=== PATIENT | female | born 1965 | race Caucasian/White ===

== ENCOUNTER → 2020-07-23 08:00 | Outpatient (BNVA) | payer OTHER, SELFPAY | PROVIDERS: PCP Internal Medicine; Visit Provider Surgery | DX: Z76.89 Persons encountering health services in other specified circumstances (principal) ==

== ENCOUNTER 2020-08-19 17:31 | Outpatient (REF) | payer OTHER, SELFPAY ==
[2020-08-19 17:58] LABS: MANUAL DIFF FLAG NO
[2020-08-19 17:59] LABS: Basophils Absolute Auto 0.1 X10*3/uL (0.0-0.2); Eosinophils Absolute Auto 0.1 X10*3/uL (0.0-0.4); Eosinophils Percent Auto 1.8 % (0-4); Hematocrit 44.2 % (37-47); Hemoglobin 14.1 g/dl (12.0-16.0); Imm Gran Abs Auto 0.02 X10*3/uL (0.00-0.03); Imm Gran Pct Auto 0.4 % (0.0-0.4); Lymphocytes Absolute Auto 1.9 X10*3/uL (1.2-4.9); Mean Corpuscular HGB Conc 31.9 g/dl (31.0-35.0); Mean Corpuscular Hemoglobin 28.8 pg (27.0-33.0); Mean Corpuscular Volume 90.2 fL (80-98); Mean Platelet Volume 10.3 fL (9.4-12.3); Monocytes Absolute Auto 0.3 X10*3/uL (0.1-1.2); Monocytes Percent Auto 6.3 % (2-11); Neutrophils Absolute Auto 2.6 X10*3/uL (2.0-8.3); Neutrophils Percent Auto 52.5 % (45-73); Platelet Count 212 X10*3/uL (160-400); Red Cell Distribution Width 12.6 % (11.0-16.0); White Blood Count 4.9 X10*3/uL (4.8-10.8)
[2020-08-19 18:27] LABS: Alanine Aminotransferase 28 U/L (0-31); Albumin Level 4.3 g/dL (3.5-5.0); Alkaline Phosphatase 82 U/L (39-117); Anion Gap 11 (12-20); Aspartate Amino Transferase 25 U/L (5-31); Bilirubin Total 0.4 mg/dL (0.0-1.0); Blood Urea Nitrogen 8 mg/dL (9-16); C Reactive Protein 0.23 mg/dL (< or = 0.50); Calcium 8.9 mg/dL (8.4-10.2); Carbon Dioxide 27 mmol/L (22-29); Chloride 104 mmol/L (96-108); Estimated Glomerular Filt Rate > 60; Glucose Random 90 mg/dL (60-115); Sodium 138 mmol/L (135-145); Total Protein 7.2 g/dL (6.5-8.0)
== END 2020-08-19 17:32 | disposition home or self-care (01) ==
LOC: HO.LAB 17:31
PROVIDERS: PCP Internal Medicine; Visit Provider Surgery
DX: R10.12 Left upper quadrant pain (principal)
CPT/HCPCS: 36415; 80053; 85025; 86140

== ENCOUNTER → 2020-08-24 08:01 | Outpatient (BNVA) | payer OTHER, SELFPAY | PROVIDERS: PCP Internal Medicine; Referring Provider Internal Medicine; Visit Provider Surgery | DX: E66.9 Obesity, unspecified (principal); Z68.31 Body mass index [BMI] 31.0-31.9, adult; R10.12 Left upper quadrant pain; Z98.84 Bariatric surgery status | CPT/HCPCS: 99212 ==

== ENCOUNTER 2020-08-26 08:05 | Outpatient (REF) | payer OTHER, SELFPAY | END 2020-08-26 08:06 | disposition home or self-care (01) | LOC: HO.CT 08:05 | PROVIDERS: PCP Internal Medicine; Visit Provider Surgery | DX: Z13.89 Encounter for screening for other disorder (principal) ==

== ENCOUNTER 2020-08-31 12:11 | Outpatient (REF) | payer OTHER, SELFPAY ==
--- NOTE | 2020-08-31 12:14 | CT_ITS ---
EXAMINATION: CT ABDOMEN AND PELVIS WITH and without CONTRAST CLINICAL INFORMATION: Left upper quadrant pain COMPARISON: Previous abdominal ultrasound March [address] of the abdomen and pelvis June 2020 TECHNIQUE: Multidetector volumetric images were obtained from the superior aspect of the liver through the pubic symphysis with and without administration 100 mL of Omnipaque 350 intravenous contrast. Sagittal and coronal reformatted images were obtained on the technologist's workstation. Oral contrast: Yes This CT examination was performed using dose optimization techniques as appropriate, variously including the following: *Automated exposure control *Adjustment of mA and/or kV according to patient size (this includes techniques or standardized protocols for targeted exams where dose is matched to indication/reason for exam; i.e. extremities or head) *Use of iterative reconstruction technique DLP: 456 mGy-cm FINDINGS: LUNG BASES: The visualized lung bases are unremarkable. LIVER, GALLBLADDER, AND BILIARY TREE: The liver is normal in size, shape, and attenuation. No focal hepatic lesion or biliary ductal dilatation is present. The gallbladder is unremarkable with no evidence of radiopaque gallstones, gallbladder wall thickening, or obvious pericholecystic inflammatory changes. PANCREAS: Unremarkable. SPLEEN: Unremarkable. ADRENAL GLANDS: Unremarkable. KIDNEYS AND URETERS: There is a 2 x 4 mm stone in the upper pole of the right kidney. There is a small 1 mm stone in the lower pole of the right kidney. There is mild upper pole calyceal dilatation. No definite BLADDER: Unremarkable. GASTROINTESTINAL TRACT: There are postsurgical changes following gastric sleeve procedure. No fluid collection extravasated oral contrast or extraluminal air is seen. The small and large bowel are unremarkable. The appendix is identified. ABDOMINAL WALL: No significant hernia is appreciated. LYMPH NODES: Normal. VASCULAR: Unremarkable. PELVIC VISCERA: There is a 2 cm exophytic uterine fibroid adjacent left uterine fundus. There is question of a right posterior uterine body fibroid measuring 2 cm as well. The ovaries are unremarkable. OSSEOUS STRUCTURES: Unremarkable. CT/CT abdomen pelvis w con IMPRESSION: Stable postsurgical changes following gastric sleeve procedure. Right renal stones. Uterine fibroids.
--- NOTE | 2020-08-31 12:14 | CT_ITS ---
EXAMINATION: CT ANGIOGRAM OF THE CHEST WITH AND WITHOUT CONTRAST (CT PULMONARY ANGIOGRAM FOR PE) CLINICAL INFORMATION: Reason for Exam R10.12 - Left upper quadrant pain COMPARISON: None TECHNIQUE: Prior to contrast administration, noncontrast localization images were obtained. Subsequently, multidetector volumetric imaging was performed from the thoracic inlet to below the diaphragms following the administration of 100 mLOmnipaque 350 intravenous contrast. No contrast reaction reported Sagittal, coronal, and MIP oblique sagittal reformatted images were obtained on the CT workstation, uploaded to PACS, and reviewed. This CT examination was performed using dose optimization techniques as appropriate, variously including the following: *Automated exposure control *Adjustment of mA and/or kV according to patient size (this includes techniques or standardized protocols for targeted exams where dose is matched to indication/reason for exam; i.e. extremities or head) *Use of iterative reconstruction technique Total exam dose-length product 129 mGy-cm FINDINGS: QUALITY OF STUDY/CONTRAST BOLUS: Satisfactory. PULMONARY ARTERIES: No central or segmental pulmonary emboli. THORACIC AORTA: No aneurysm or dissection. LUNG: There is subsegmental atelectasis at the left lung base. The lungs are otherwise clear. PLEURA: No pleural effusion or pneumothorax. MEDIASTINUM: Normal heart size. No pericardial effusion. No hilar or mediastinal lymphadenopathy. No evidence of septal bowing or right heart strain. CHEST WALL/AXILLA: No axillary or internal mammary lymphadenopathy. OSSEOUS STRUCTURES: No acute or suspicious osseous abnormality. UPPER ABDOMEN: There are postsurgical changes to the stomach. No reflux of contrast into the hepatic veins to suggest elevated right heart pressures. CT/CT angio chest PE protocol IMPRESSION: No evidence of pulmonary embolism. VTE: negative
[2020-08-31] MEDS: iohexoL 350 MG/ML 100 ML INFUS..BTL IV (15:36)
[2020-08-31] MEDS: Barium Sulfate Oral (Mocha) 450 ML ORAL.SUSP 900 ML PO (15:37)
== END 2020-08-31 12:12 | disposition home or self-care (01) ==
LOC: HO.CT 12:11
PROVIDERS: Visit Provider Surgery
DX: R10.12 Left upper quadrant pain (principal); Z98.84 Bariatric surgery status
CPT/HCPCS: 71275; 74177; Q9967

== ENCOUNTER → 2020-10-05 08:21 | Outpatient (BNVA) | payer OTHER, SELFPAY | PROVIDERS: Visit Provider Surgery | DX: Z76.89 Persons encountering health services in other specified circumstances (principal) ==

== ENCOUNTER 2020-10-14 14:29 | Outpatient (REF) | payer OTHER, SELFPAY ==
[2020-10-14 16:32] LABS: MANUAL DIFF FLAG NO
[2020-10-14 16:39] LABS: Basophils Absolute Auto 0.1 X10*3/uL (0.0-0.2); Basophils Percent Auto 1.3 % (0-2); Eosinophils Absolute Auto 0.1 X10*3/uL (0.0-0.4); Eosinophils Percent Auto 1.3 % (0-4); Hematocrit 44.9 % (37-47); Hemoglobin 14.5 g/dl (12.0-16.0); Lymphocytes Absolute Auto 1.6 X10*3/uL (1.2-4.9); Lymphocytes Percent Auto 40.9 % (20-40); Mean Corpuscular HGB Conc 32.3 g/dl (31.0-35.0); Mean Corpuscular Hemoglobin 29.5 pg (27.0-33.0); Mean Corpuscular Volume 91.4 fL (80-98); Mean Platelet Volume 10.7 fL (9.4-12.3); Monocytes Absolute Auto 0.2 X10*3/uL (0.1-1.2); Monocytes Percent Auto 6.3 % (2-11); Neutrophils Absolute Auto 1.9 X10*3/uL (2.0-8.3); Neutrophils Percent Auto 50.2 % (45-73); Platelet Count 239 X10*3/uL (160-400); Red Blood Count 4.91 X10*6/uL (4.20-5.50); Red Cell Distribution Width 12.3 % (11.0-16.0); White Blood Count 3.8 X10*3/uL (4.8-10.8)
[2020-10-14 16:47] LABS: Estimated Average Glucose 105 mg/dL; Hemoglobin A1c % 5.3 %
[2020-10-14 16:59] LABS: Alanine Aminotransferase 25 U/L (0-31); Albumin Level 4.2 g/dL (3.5-5.0); Alkaline Phosphatase 83 U/L (39-117); Anion Gap 12 (12-20); Aspartate Amino Transferase 21 U/L (5-31); Bilirubin Total 0.4 mg/dL (0.0-1.0); Blood Urea Nitrogen 13 mg/dL (9-16); C Reactive Protein 0.26 mg/dL (< or = 0.50); Calcium 8.9 mg/dL (8.4-10.2); Carbon Dioxide 26 mmol/L (22-29); Chloride 105 mmol/L (96-108); Cholesterol 202 mg/dL; Estimated Glomerular Filt Rate > 60; Glucose Random 80 mg/dL (60-115); HDL Cholesterol 55 mg/dL; LDL Cholesterol Calculated 121 mg/dl; Potassium 4.2 mmol/l (3.3-5.1); Sodium 139 mmol/L (135-145); Total Protein 7.3 g/dL (6.5-8.0); Triglycerides 130 mg/dL
[2020-10-14 17:21] LABS: Ferritin 19 ng/mL (10-250); TSH reflex Free T4 1.26 mIU/mL (0.32-4.0); Vitamin D 25-OH Total 38.3 ng/mL (>30)
[2020-10-14 17:30] LABS: Vitamin B12 446 pg/mL (200-900)
[2020-10-15 11:42] LABS: Insulin Level Total 6.4 uIU/mL
[2020-10-15 19:08] LABS: Calcium (PTHI) 9.1 mg/dL (8.6-10.4); PTHI 41 pg/mL (14-64)
[2020-10-17 15:43] LABS: Zinc 82 mcg/dL (60-130)
[2020-10-18 12:23] LABS: Vitamin B1 10 nmol/L (8-30)
[2020-10-20 14:12] LABS: Vitamin A 44 mcg/dL (38-98)
== END 2020-10-14 14:30 | disposition home or self-care (01) ==
LOC: HO.LAB 14:29
PROVIDERS: PCP Internal Medicine; Visit Provider Surgery
DX: E66.3 Overweight (principal); K90.9 Intestinal malabsorption, unspecified
CPT/HCPCS: 36415; 80053; 80061; 82306; 82607; 82728; 82746; 83036; 83525; 83970; 84425; 84443; 84590; 84630; 85025; 86140

== ENCOUNTER → 2020-11-06 08:09 | Outpatient (BNVA) | payer OTHER, SELFPAY | PROVIDERS: PCP Internal Medicine; Visit Provider Surgery | DX: Z76.89 Persons encountering health services in other specified circumstances (principal) ==

== ENCOUNTER → 2020-12-11 08:25 | Outpatient (BNVA) | payer OTHER, SELFPAY | PROVIDERS: PCP Internal Medicine; Visit Provider Surgery ==

== ENCOUNTER → 2021-01-11 07:29 | Outpatient (BNVA) | payer OTHER, SELFPAY | PROVIDERS: PCP Internal Medicine; Visit Provider Surgery ==

== ENCOUNTER → 2021-02-19 08:49 | Outpatient (BNVA) | payer OTHER, SELFPAY | PROVIDERS: PCP Internal Medicine; Visit Provider Surgery ==

== ENCOUNTER 2021-04-02 11:04 | Outpatient (REF) | payer OTHER, SELFPAY ==
[2021-04-02 12:57] LABS: Alanine Aminotransferase 23 U/L (0-31); Alkaline Phosphatase 82 U/L (39-117); Anion Gap 10 (12-20); Aspartate Amino Transferase 21 U/L (5-31); Bilirubin Total 0.4 mg/dL (0.0-1.0); Blood Urea Nitrogen 12 mg/dL (9-16); Calcium 8.9 mg/dL (8.4-10.2); Carbon Dioxide 29 mmol/L (22-29); Chloride 105 mmol/L (96-108); Estimated Glomerular Filt Rate > 60; Glucose Random 84 mg/dL (60-115); Potassium 4.2 mmol/L (3.3-5.1); Sodium 140 mmol/L (135-145); Total Protein 6.7 g/dL (6.5-8.0)
[2021-04-02 13:13] LABS: Estimated Average Glucose 103 mg/dL; Hemoglobin A1c % 5.2 %
== END 2021-04-02 11:05 | disposition home or self-care (01) ==
LOC: HO.LAB 11:04
PROVIDERS: PCP Internal Medicine; Visit Provider Surgery
DX: K90.9 Intestinal malabsorption, unspecified (principal)
CPT/HCPCS: 36415; 80053; 83036

== ENCOUNTER → 2021-05-12 07:23 | Outpatient (BNVA) | payer OTHER, SELFPAY | PROVIDERS: PCP Internal Medicine; Visit Provider Surgery ==

== ENCOUNTER → 2021-12-03 14:59 | Outpatient (BNVA) | payer OTHER, SELFPAY | PROVIDERS: PCP Internal Medicine; Visit Provider Dietitian, Registered | DX: E66.9 Obesity, unspecified (principal) | CPT/HCPCS: 97803 ==

== ENCOUNTER 2021-12-06 15:19 | Outpatient (REF) | payer OTHER, SELFPAY ==
[2021-12-06 16:39] LABS: MANUAL DIFF FLAG NO
[2021-12-06 17:00] LABS: Basophils Absolute Auto 0.1 X10*3/uL (0.0-0.2); Basophils Percent Auto 0.9 % (0-2); Eosinophils Absolute Auto 0.1 X10*3/uL (0.0-0.4); Hematocrit 40.9 % (37.0-47.0); Hemoglobin 13.5 g/dl (12.0-16.0); Imm Gran Abs Auto 0.01 X10*3/uL (0.00-0.03); Imm Gran Pct Auto 0.2 % (0.0-0.4); Lymphocytes Absolute Auto 1.8 X10*3/uL (1.2-4.9); Lymphocytes Percent Auto 30.4 % (20-40); Mean Corpuscular Hemoglobin 29.6 pg (27.0-33.0); Mean Corpuscular Volume 89.7 fL (80.0-98.0); Mean Platelet Volume 9.9 fL (9.4-12.3); Monocytes Absolute Auto 0.4 X10*3/uL (0.1-1.2); Monocytes Percent Auto 7.5 % (2-11); Neutrophils Absolute Auto 3.5 x10*3/uL (2.0-8.3); Platelet Count 245 X10*3/uL (160-400); Red Blood Count 4.56 X10*6/uL (4.20-5.50); Red Cell Distribution Width 11.9 % (11.0-16.0); White Blood Count 5.9 X10*3/uL (4.8-10.8)
[2021-12-06 17:23] LABS: Anion Gap 11 (12-20); Blood Urea Nitrogen 17 mg/dL (9-16); C Reactive Protein 0.16 mg/dL (< or = 0.50); Calcium 9.7 mg/dL (8.4-10.2); Carbon Dioxide 29 mmol/L (22-29); Chloride 104 mmol/L (96-108); Cholesterol 181 mg/dL; Estimated Glomerular Filt Rate > 60; Glucose Random 87 mg/dL (60-115); HDL Cholesterol 52 mg/dL; Iron 83 mcg/dL (30-160); LDL Cholesterol Calculated 59 mg/dl; Percent Iron Saturation 22 % (15-50); Potassium 4.1 mmol/L (3.3-5.1); Sodium 140 mmol/L (135-145); Total Iron Binding Capacity 374 mcg/dL (228-428); Triglycerides 350 mg/dL; Unsaturated Iron Binding 291 ug/dL
[2021-12-06 17:50] LABS: TSH reflex Free T4 1.42 uIU/mL (0.32-4.0); Vitamin D 25-OH Total 28.8 ng/mL (>30)
[2021-12-06 17:54] LABS: Folate 8.2 ng/mL (> or = 4.0); Vitamin B12 643 pg/mL (200-900)
[2021-12-06 18:20] LABS: Ferritin 41 ng/mL (10-250)
[2021-12-07 08:54] LABS: Alanine Aminotransferase 21 U/L (0-31); Albumin Level 4.1 g/dL (3.5-5.0); Alkaline Phosphatase 67 U/L (39-117); Aspartate Amino Transferase 21 U/L (5-31); Bilirubin Direct < 0.2 mg/dL (0.0-0.5); Bilirubin Total 0.3 mg/dL (0.0-1.0); Lipase 112 U/L (8-78)
[2021-12-07 08:59] LABS: Amylase 110 U/L (28-100)
[2021-12-10 01:56] LABS: Zinc 58 mcg/dL (60-130)
[2021-12-10 11:47] LABS: Vitamin B1 15 nmol/L (8-30)
[2021-12-11 19:47] LABS: Vitamin A 59 mcg/dL (38-98)
== END 2021-12-06 15:20 | disposition home or self-care (01) ==
LOC: HO.LAB 15:19
PROVIDERS: PCP Internal Medicine; Visit Provider Physician Assistant Surgical
DX: K90.9 Intestinal malabsorption, unspecified (principal); E53.8 Deficiency of other specified B group vitamins; Z98.84 Bariatric surgery status; Z90.49 Acquired absence of other specified parts of digestive tract
CPT/HCPCS: 36415; 80048; 80061; 80076; 82150; 82306; 82607; 82728; 82746; 83540; 83690; 84425; 84443; 84590; 84630; 85025; 86140; 99212

== ENCOUNTER → 2021-12-20 08:08 | Outpatient (BNVA) | payer OTHER, SELFPAY | PROVIDERS: PCP Internal Medicine; Visit Provider Dietitian, Registered | DX: E66.3 Overweight (principal) | CPT/HCPCS: 97803 ==

== ENCOUNTER → 2021-12-21 10:28 | Outpatient (BNVA) | payer OTHER, SELFPAY | PROVIDERS: PCP Internal Medicine; Visit Provider Physician Assistant Surgical | DX: E66.9 Obesity, unspecified (principal); Z68.30 Body mass index [BMI] 30.0-30.9, adult; R10.12 Left upper quadrant pain; Z98.84 Bariatric surgery status; Z90.49 Acquired absence of other specified parts of digestive tract | CPT/HCPCS: 99212 ==

== ENCOUNTER → 2022-04-08 13:30 | Outpatient (BNVA) | payer OTHER, SELFPAY | PROVIDERS: PCP Internal Medicine; Visit Provider Physician Assistant Surgical | DX: E66.9 Obesity, unspecified (principal); Z68.31 Body mass index [BMI] 31.0-31.9, adult; Z98.84 Bariatric surgery status | CPT/HCPCS: 99212 ==

== ENCOUNTER 2022-08-26 09:55 | Outpatient (REF) | payer OTHER, SELFPAY ==
[2022-08-26 10:07] LABS: MANUAL DIFF FLAG NO
[2022-08-26 10:33] LABS: Basophils Absolute Auto 0.1 X10*3/uL (0.0-0.2); Basophils Percent Auto 1.6 % (0-2); Eosinophils Absolute Auto 0.1 X10*3/uL (0.0-0.4); Eosinophils Percent Auto 2.8 % (0-4); Hematocrit 42.2 % (37.0-47.0); Hemoglobin 13.8 g/dl (12.0-16.0); Lymphocytes Absolute Auto 1.5 X10*3/uL (1.2-4.9); Lymphocytes Percent Auto 39.1 % (20-40); Mean Corpuscular HGB Conc 32.7 g/dl (31.0-35.0); Mean Corpuscular Hemoglobin 29.1 pg (27.0-33.0); Mean Platelet Volume 9.8 fL (9.4-12.3); Monocytes Absolute Auto 0.3 X10*3/uL (0.1-1.2); Monocytes Percent Auto 6.7 % (2-11); Neutrophils Absolute Auto 1.9 x10*3/uL (2.0-8.3); Neutrophils Percent Auto 49.8 % (45-73); Platelet Count 244 X10*3/uL (160-400); Red Blood Count 4.74 X10*6/uL (4.20-5.50); Red Cell Distribution Width 12.1 % (11.0-16.0); White Blood Count 3.9 X10*3/uL (4.8-10.8)
[2022-08-26 10:46] LABS: Estimated Average Glucose 111 mg/dL; Hemoglobin A1c % 5.5 %
[2022-08-26 11:10] LABS: Alanine Aminotransferase 24 U/L (0-31); Albumin Level 4.1 g/dL (3.5-5.0); Alkaline Phosphatase 64 U/L (39-117); Anion Gap 14 (12-20); Aspartate Amino Transferase 25 U/L (5-31); Bilirubin Total 0.4 mg/dL (0.0-1.0); Blood Urea Nitrogen 9 mg/dL (9-16); C Reactive Protein 0.19 mg/dL (< or = 0.50); Calcium 9.3 mg/dL (8.4-10.2); Carbon Dioxide 26 mmol/L (22-29); Chloride 106 mmol/L (96-108); Cholesterol 208 mg/dL; Estimated Glomerular Filt Rate > 60; Glucose Random 88 mg/dL (60-115); HDL Cholesterol 52 mg/dL; Iron 91 mcg/dL (30-160); LDL Cholesterol Calculated 117 mg/dl; Percent Iron Saturation 24 % (15-50); Potassium 4.3 mmol/L (3.3-5.1); Sodium 142 mmol/L (135-145); Total Iron Binding Capacity 379 mcg/dL (228-428); Total Protein 7.1 g/dL (6.5-8.0); Triglycerides 196 mg/dL; Unsaturated Iron Binding 288 ug/dL
[2022-08-26 11:33] LABS: Ferritin 15 ng/mL (10-250); Insulin 14 uU/mL (2-29); TSH reflex Free T4 1.74 uIU/mL (0.32-4.0); Vitamin D 25-OH Total 27.3 ng/mL (>30)
[2022-08-26 11:59] LABS: Folate 13.5 ng/mL (> or = 4.0)
[2022-08-26 12:51] LABS: Vitamin B12 396 pg/mL (200-900)
[2022-08-29 12:42] LABS: Calcium (PTHI) 9.2 mg/dL (8.6-10.4); PTHI 76 pg/mL (16-77)
[2022-08-31 06:16] LABS: Zinc 82 mcg/dL (60-130)
[2022-08-31 23:17] LABS: Vitamin A 46 mcg/dL (38-98)
[2022-09-01 14:36] LABS: Vitamin B1 <6 nmol/L (8-30)
== END 2022-08-26 09:56 | disposition home or self-care (01) ==
LOC: HO.LAB 09:55
PROVIDERS: PCP Internal Medicine; Visit Provider Physician Assistant Surgical
DX: K90.9 Intestinal malabsorption, unspecified (principal); Z98.84 Bariatric surgery status
CPT/HCPCS: 36415; 80053; 80061; 82306; 82607; 82728; 82746; 83036; 83525; 83540; 83970; 84425; 84443; 84590; 84630; 85025; 86140

== ENCOUNTER → 2022-09-09 15:04 | Outpatient (BNVA) | payer OTHER, SELFPAY | PROVIDERS: PCP Internal Medicine; Visit Provider Physician Assistant Surgical | DX: E66.9 Obesity, unspecified (principal); Z98.84 Bariatric surgery status; Z68.31 Body mass index [BMI] 31.0-31.9, adult | CPT/HCPCS: 99212 ==

== ENCOUNTER → 2022-12-02 13:35 | Outpatient (BNVA) | payer OTHER, SELFPAY | PROVIDERS: PCP Internal Medicine; Visit Provider Physician Assistant Surgical | DX: E66.9 Obesity, unspecified (principal); K90.9 Intestinal malabsorption, unspecified; Z68.30 Body mass index [BMI] 30.0-30.9, adult; Z98.84 Bariatric surgery status | CPT/HCPCS: 99212 ==

== ENCOUNTER → 2023-02-13 14:04 | Outpatient (BNVA) | payer OTHER, SELFPAY | PROVIDERS: PCP Internal Medicine; Visit Provider Physician Assistant Surgical | DX: E66.9 Obesity, unspecified (principal); Z68.31 Body mass index [BMI] 31.0-31.9, adult | CPT/HCPCS: 99212 ==

== ENCOUNTER → 2023-02-21 14:21 | Outpatient (BNVA) | payer OTHER, SELFPAY | PROVIDERS: PCP Internal Medicine; Visit Provider Physician Assistant | DX: M54.40 Lumbago with sciatica, unspecified side (principal) | CPT/HCPCS: 99212 ==

== ENCOUNTER 2023-04-18 14:14 | Outpatient (REF) | payer OTHER, SELFPAY ==
--- NOTE | ~2023-04-18 | MR_ITS ---
EXAMINATION: MR LUMBAR SPINE WITHOUT AND WITH CONTRAST CLINICAL INFORMATION: Left sciatica COMPARISON: None available. TECHNIQUE: MRI of the lumbar spine was obtained using routine sequences with and without contrast. Intravenous contrast: Gadavist 9 mL FINDINGS: Normal anatomic alignment. No suspicious marrow signal or focal osseous lesion. Mild edema along the anterior superior L1 endplates. The vertebral body heights are maintained. Mild multilevel disc desiccation The conus medullaris terminates at the level of L1. The distal spinal cord is normal in appearance. The cauda equina nerve roots appear normal. No significant abnormalities of the paraspinal musculature. Mild enhancement of the midline paraspinal soft tissues at L4-L5, likely postoperative. Limited evaluation of the intra-abdominal structures without significant abnormalities. The abdominal aorta is of normal contour and caliber. SPINAL LEVELS: L1-L2: No significant spinal canal or neuroforaminal narrowing. Shallow disc bulge and mild facet arthropathy. L2-L3: Right eccentric disc bulge, mild facet arthropathy. No significant central spinal canal stenosis. Mild right neural foraminal narrowing L3-L4: Shallow left eccentric disc bulge and mild facet arthropathy. No significant central spinal canal stenosis. Mild left neural foraminal narrowing. L4-L5: Left hemilaminectomy changes. Shallow disc bulge with superimposed small left subarticular protrusion with mild peripheral enhancement of disc material likely reflecting postoperative granulation tissue which contacts the traversing left L5 nerve root. Mild facet arthropathy and ligamentum flavum thickening. No significant central spinal canal stenosis mild bilateral neural foraminal narrowing. L5-S1: No significant spinal canal or neuroforaminal narrowing. Shallow disc bulge and mild facet arthropathy MR/MR lumbar spine wo/w con IMPRESSION: 1. Postsurgical changes from left hemilaminectomy at L4-L5. There is a small left subarticular disc protrusion with peripheral enhancement of disc material likely reflecting postoperative granulation tissue which contacts the traversing left L5 nerve root. 2. Otherwise mild multilevel lumbar spondylosis as described above without significant central spinal canal stenosis or high-grade neural foraminal narrowing.
== END 2023-04-18 14:15 | disposition home or self-care (01) ==
LOC: HO.MRI 14:14
PROVIDERS: PCP Internal Medicine; Visit Provider Physician Assistant
DX: M54.40 Lumbago with sciatica, unspecified side (principal)
CPT/HCPCS: 72158; A9585

== ENCOUNTER 2023-05-09 14:50 | Outpatient (AMB) | payer OTHER, SELFPAY ==
[2023-05-09 14:52] VITALS: BP 139/64; PULSE 74; TEMP 36.6; O2SAT 97; BMI 31.7
--- NOTE | 2023-05-09 14:52 | A.OFFVIS_ITS ---
Intake VS Expanded 05/09/23 14:52 Height 5 ft 6 in Weight 196 lb 3.2 oz BMI 31.7 BP 139/64 Blood Pressure Location Rt brachial Blood Pressure Position Sitting Pulse 74 Pulse Source Pulse Oximeter Temp 97.8 F Temperature Source Temporal Artery Scan Pulse Oximetry 97 Oxygen Delivery Method Room Air Body Fat 81.0 Body Fat Percentage 41.3 Free Fat Mass 115.0 Muscle Mass 109.4 Visceral Mass 10.0 Water Mass 81.6 BMR 1,587 Intake Visit Reasons: (OV) PO LSG 06/11/20 Allergies aspirin [ASA] Allergy (Severe, Verified 05/09/23 14:55) ANAPHYLAXIS NSAIDS (Non-Steroidal Anti-Inflamma [NSAIDS (NON-STEROIDAL ANTI-INFLAMMA] Allergy (Severe, Verified 05/09/23 14:55) ANAPHYLAXIS shellfish derived [SHELLFISH DERIVED] Allergy (Severe, Verified 05/09/23 14:55) ANAPHYLAXIS fish oil Allergy (Unknown, Verified 05/09/23 14:55) sinus symptoms Aspirin Allergy (Unknown, Uncoded 12/06/21 15:26) vomiting Shellfish Allergy (Unknown, Uncoded 12/06/21 15:26) itching Medication List - Last Reconciled 05/09/23 by VIKTOR Cam atorvastatin 10 mg PO BEDTIME cetirizine 10 mg PO DAILY cholecalciferol (vitamin D3) 25 mcg PO DAILY cholestyramine (with sugar) 4 gram PO TID duloxetine (Cymbalta) 60 mg PO DAILY hyoscyamine sulfate 0.125 mg PO QIDACHS montelukast 10 mg PO DAILY thiamine HCl (vitamin B1) 100 mg PO DAILY HPI HPI Comments History of Present Illness Details This?is a?57?yo female who is s/p LSG 06/11/2020. Presents for 3 year post op visit. Weight at last visit on 02/13/2023 was 194.6 pounds with a BMI of 31.4, weight today is 196.2 pounds, representing a 1.6 pound weight gain with a BMI today of 31.7.? No complaints of nausea, emesis, abdominal pain or reflux, or constipation. Starting a new job soon at [employer]. Getting a more structured schedule and more consistent income. Present meal plan includes: 2 Celebrate shakes per day with 2 scoops each, plus a meal of 4oz or a meal of 2-3oz protein and a small snack. Has been less consistent with shakes. All meals last 20 - 30 minutes and does not drink and eat at the same time. Exercise routine includes: trying to continue spine exercises, still having some pain plans to restart gym once new job starts, wants to walk on treadmill Did the patient ever have any of these conditions and are they resolved or still being treated? GERD: resolved ROBERTO:? resolved DM:? never HTN:? never Hyperlipidemia:? atorvastatin? Post op complications:?none Heartburn symptoms? worsened during course of steroids Score 0-5: 0=no symptoms, 1=noticeable but not bothersome (slight or occasional), 2=noticeable, bothersome but not daily, 3=bothersome and daily, 4=affects daily activities, 5=incapacitating, unable to do daily activities How bad is the heartburn: 5 Heartburn when lying down: 4 Heartburn when standing up: 4 Heartburn after meals: 3 Does heartburn change your diet: 4 Does heartburn wake you up from sleep: 2 Do you have difficulty swallowin Do you have pain with swallowin If you take medication for reflux, does this affect your daily life: 4 Total score: 27 [facility] Medical History (Updated 02/21/23 @ 15:02 by VIKTOR Tuttle) Asthma Intestinal malabsorption Nephrolithiasis Surgical History H/O shoulder surgery H/O sinus surgery History of esophagogastroduodenoscopy (EGD) History of sleeve gastrectomy Hx of appendectomy Hx of section Hx of colonoscopy Hx of spinal surgery S/P laparoscopic sleeve gastrectomy S/P right knee arthroscopy Family History Father Hypertension Heart disease Colon cancer Mother Spinal stenosis Brother No problems noted. Brother No problems noted. Brother No problems noted. Sister No problems noted. Sister No problems noted. Son No problems noted. Daughter No problems noted. Daughter No problems noted. Daughter No problems noted. Social History Alcohol intake: never Patient Tobacco Use Status: Never used Tobacco Physical Exam Vital Signs: Last Vital Signs Temp 97.8 F 05/09/23 14:52 Pulse 74 05/09/23 14:52 BP 139/64 05/09/23 14:52 Pulse Ox 97 05/09/23 14:52 Oxygen Delivery Method Room Air 05/09/23 14:52 BMI result Body Mass Index 31.7 Assessment & Plan Assessment & Plan (1) Obesity: Code(s): E66.9 - Obesity, unspecified (2) S/P laparoscopic sleeve gastrectomy: Code(s): Z98.84 - Bariatric surgery status Plan New meal plan for pt's new job: 8-10am Celebrate shake, 2 scoops in 8oz skim or 1% milk 12pm small meal of 2oz protein, can have 2oz veg 2-4pm another shake 6pm another meal Pt encouraged to resume exercise now that her schedule is becoming more consistent, planning to join daughter and son at the gym. RTC August, will repeat labs at that time. Encouraged pt to reach out between appts with any concerns. Patient is obese and is not considered stable at this time. I spent a total of 30 minutes reviewing/updating records, examining the patient and counseling the patient on weight management as detailed above. Coding Level of Care Code Est Pt Level 4 (18679) Diagnoses Obesity E66.9 S/P laparoscopic sleeve gastrectomy Z98.84
== END 2023-05-09 15:37 | disposition home or self-care (01) ==
PROVIDERS: PCP Internal Medicine; Visit Provider Physician Assistant Surgical
DX: E66.9 Obesity, unspecified (principal); Z68.31 Body mass index [BMI] 31.0-31.9, adult; Z90.3 Acquired absence of stomach [part of]; Z98.84 Bariatric surgery status
CPT/HCPCS: 99214

== ENCOUNTER → 2023-05-09 14:50 | Outpatient (BNVA) | payer OTHER, SELFPAY | PROVIDERS: PCP Internal Medicine; Visit Provider Physician Assistant Surgical | DX: E66.9 Obesity, unspecified (principal); Z98.84 Bariatric surgery status; Z68.31 Body mass index [BMI] 31.0-31.9, adult | CPT/HCPCS: 99212 ==

== ENCOUNTER 2023-12-21 12:27 | Outpatient (AMB) | payer OTHER, SELFPAY ==
--- NOTE | 2023-12-21 12:39 | MHC.OFFVISWM ---
Intake VS Expanded 12/21/23 12:47 BP 147/72 H Blood Pressure Location Rt brachial Blood Pressure Position Sitting Pulse 72 Pulse Source Pulse Oximeter Temp 97.3 F Temperature Source Temporal Artery Scan Pulse Oximetry 96 Oxygen Delivery Method Room Air Height 5 ft 6 in Weight 196 lb 9.6 oz BMI 31.7 Body Fat % 42.5 Body Fat Mass 83.6 Fat Free Mass 112.8 Visceral Fat Rating 11.0 Body Water % 40.7 Body Water Mass 80.0 Muscle Mass/Score 107.2 Basal Metabolic Rate/Score 1,564 Intake Visit Reasons: (OV) PO LSG 06/11/20 Allergies aspirin [ASA] Allergy (Severe, Verified 12/21/23 12:53) ANAPHYLAXIS NSAIDS (Non-Steroidal Anti-Inflamma [NSAIDS (NON-STEROIDAL ANTI-INFLAMMA] Allergy (Severe, Verified 12/21/23 12:53) ANAPHYLAXIS shellfish derived [SHELLFISH DERIVED] Allergy (Severe, Verified 12/21/23 12:53) ANAPHYLAXIS fish oil Allergy (Unknown, Verified 12/21/23 12:53) sinus symptoms Aspirin Allergy (Unknown, Uncoded 12/21/23 12:53) vomiting Shellfish Allergy (Unknown, Uncoded 12/21/23 12:53) itching Medication List - Last Reconciled 12/21/23 by VIKTOR Cam cetirizine 10 mg PO DAILY cholecalciferol (vitamin D3) 25 mcg PO DAILY cholestyramine (with sugar) 4 gram PO TID montelukast 10 mg PO DAILY thiamine HCl (vitamin B1) 100 mg PO DAILY [facility] Medical History (Updated 02/21/23 @ 15:02 by VIKTOR Tuttle) Intestinal malabsorption Asthma Nephrolithiasis Surgical History Hx of spinal surgery S/P laparoscopic sleeve gastrectomy History of sleeve gastrectomy H/O sinus surgery S/P right knee arthroscopy H/O shoulder surgery Hx of appendectomy History of esophagogastroduodenoscopy (EGD) Hx of colonoscopy Hx of section Family History Father Hypertension Heart disease Colon cancer Mother Spinal stenosis Brother No problems noted. Brother No problems noted. Brother No problems noted. Sister No problems noted. Sister No problems noted. Son No problems noted. Daughter No problems noted. Daughter No problems noted. Daughter No problems noted. Social History Alcohol intake: never Patient Tobacco Use Status: Never used Tobacco Coding
--- NOTE | 2023-12-21 12:45 | A.OFFVIS_ITS ---
Intake VS Expanded 12/21/23 12:47 BP 147/72 H Blood Pressure Location Rt brachial Blood Pressure Position Sitting Pulse 72 Pulse Source Pulse Oximeter Temp 97.3 F Temperature Source Temporal Artery Scan Pulse Oximetry 96 Oxygen Delivery Method Room Air Height 5 ft 6 in Weight 196 lb 9.6 oz BMI 31.7 Body Fat % 42.5 Body Fat Mass 83.6 Fat Free Mass 112.8 Visceral Fat Rating 11.0 Body Water % 40.7 Body Water Mass 80.0 Muscle Mass/Score 107.2 Basal Metabolic Rate/Score 1,564 Intake Visit Reasons: (OV) PO LSG 06/11/20 Allergies aspirin [ASA] Allergy (Severe, Verified 12/21/23 12:53) ANAPHYLAXIS NSAIDS (Non-Steroidal Anti-Inflamma [NSAIDS (NON-STEROIDAL ANTI-INFLAMMA] Allergy (Severe, Verified 12/21/23 12:53) ANAPHYLAXIS shellfish derived [SHELLFISH DERIVED] Allergy (Severe, Verified 12/21/23 12:53) ANAPHYLAXIS fish oil Allergy (Unknown, Verified 12/21/23 12:53) sinus symptoms Aspirin Allergy (Unknown, Uncoded 12/21/23 12:53) vomiting Shellfish Allergy (Unknown, Uncoded 12/21/23 12:53) itching Medication List - Last Reconciled 12/21/23 by VIKTOR Cam cetirizine 10 mg PO DAILY cholecalciferol (vitamin D3) 25 mcg PO DAILY cholestyramine (with sugar) 4 gram PO TID montelukast 10 mg PO DAILY thiamine HCl (vitamin B1) 100 mg PO DAILY HPI HPI Comments History of Present Illness Details This?is a?58?yo female who is s/p LSG 06/11/2020. Presents for 3.5 year post op visit. Weight at last visit on 05/09/2023 was 196.2 pounds with a BMI of 31.7, weight today is 196.6 pounds.? No complaints of nausea, emesis, abdominal pain. Has needed to take OTC reflux meds for reflux, but this has been better this week. Very rare EtOH use, nonsmoker. Present meal plan includes: 7-9am Celebrate shake, 1 scoops in 8oz s betito or 1% milk 10am-12pm Celebrate, ZP, or Fulfill 1-3pm another shake 4-6pm another bar 7pm 5 forks protein, 5 forks salad/veg/r ice/potatoes 9-10pm half bar Exercise routine includes: has tried to restart walking, burned 400 fanny last walk treadmill walking prescribed by Dr. Vasquez Has been on this plan since Monday after reaching out to Dr. Vasquez to report worsening heartburn and weight gain. Has tried to cut back on coffee. [facility] Medical History (Updated 12/21/23 @ 13:05 by VIKTOR Cam) Intestinal malabsorption Asthma Nephrolithiasis Surgical History Hx of spinal surgery S/P laparoscopic sleeve gastrectomy History of sleeve gastrectomy H/O sinus surgery S/P right knee arthroscopy H/O shoulder surgery Hx of appendectomy History of esophagogastroduodenoscopy (EGD) Hx of colonoscopy Hx of section Family History Father Hypertension Heart disease Colon cancer Mother Spinal stenosis Brother No problems noted. Brother No problems noted. Brother No problems noted. Sister No problems noted. Sister No problems noted. Son No problems noted. Daughter No problems noted. Daughter No problems noted. Daughter No problems noted. Social History Alcohol intake: never Patient Tobacco Use Status: Never used Tobacco Assessment & Plan Assessment & Plan (1) Obesity: Code(s): E66.9 - Obesity, unspecified (2) S/P laparoscopic sleeve gastrectomy: Code(s): Z98.84 - Bariatric surgery status (3) GERD (gastroesophageal reflux disease): Code(s): K21.9 - Gastro-esophageal reflux disease without esophagitis Plan Pt needs to start MVI now that she is is taking less than 4 total scoops Celebrate 4:1. She will follow meal plan provided by Dr. Vasquez and increase her exercise. Will increase exercise with goal 2000 fanny burned per week. Will have labs done. RTC 6 weeks. Patient is obese and is not considered stable at this time. I spent a total of 30 minutes reviewing/updating records, examining the patient and counseling the patient on weight management as detailed above. Coding Level of Care Code Est Pt Level 4 (20047) Diagnoses Obesity E66.9 S/P laparoscopic sleeve gastrectomy Z98.84 GERD (gastroesophageal reflux disease) K21.9
[2023-12-21 12:47] VITALS: BP 147/72; PULSE 72; TEMP 36.3; O2SAT 96; BMI 31.7
== END 2023-12-21 13:17 | disposition home or self-care (01) ==
PROVIDERS: PCP Internal Medicine; Visit Provider Physician Assistant Surgical
DX: E66.9 Obesity, unspecified (principal); Z68.31 Body mass index [BMI] 31.0-31.9, adult; Z90.3 Acquired absence of stomach [part of]; Z98.84 Bariatric surgery status; K21.9 Gastro-esophageal reflux disease without esophagitis
CPT/HCPCS: 99214

== ENCOUNTER → 2023-12-21 12:27 | Outpatient (BNVA) | payer OTHER, SELFPAY | PROVIDERS: PCP Internal Medicine; Visit Provider Physician Assistant Surgical | DX: E66.9 Obesity, unspecified (principal); Z68.31 Body mass index [BMI] 31.0-31.9, adult; K21.9 Gastro-esophageal reflux disease without esophagitis; Z98.84 Bariatric surgery status | CPT/HCPCS: 99212 ==

== ENCOUNTER 2024-01-01 12:37 | Outpatient (REF) | payer OTHER, SELFPAY ==
[2024-01-01 13:03] LABS: MANUAL DIFF FLAG NO
[2024-01-01 13:34] LABS: Basophils Absolute Auto 0.1 X10*3/uL (0.0-0.2); Basophils Percent Auto 1.4 % (0-2); Eosinophils Absolute Auto 0.1 X10*3/uL (0.0-0.4); Eosinophils Percent Auto 2.1 % (0-4); Hematocrit 44.1 % (37.0-47.0); Hemoglobin 14.6 g/dl (12.0-16.0); Imm Gran Abs Auto 0.02 X10*3/uL (0.00-0.03); Imm Gran Pct Auto 0.5 % (0.0-0.4); Lymphocytes Absolute Auto 1.7 X10*3/uL (1.2-4.9); Mean Corpuscular HGB Conc 33.1 g/dl (31.0-35.0); Mean Corpuscular Hemoglobin 29.3 pg (27.0-33.0); Mean Corpuscular Volume 88.6 fL (80.0-98.0); Mean Platelet Volume 10.3 fL (9.4-12.3); Monocytes Absolute Auto 0.3 X10*3/uL (0.1-1.2); Monocytes Percent Auto 7.6 % (2-11); Neutrophils Percent Auto 48.4 % (45-73); Platelet Count 236 X10*3/uL (160-400); Red Blood Count 4.98 X10*6/uL (4.20-5.50); Red Cell Distribution Width 12.4 % (11.0-16.0); White Blood Count 4.2 X10*3/uL (4.8-10.8)
[2024-01-01 13:43] LABS: Estimated Average Glucose 100 mg/dL; Hemoglobin A1c % 5.1 % (<6.0)
[2024-01-01 14:33] LABS: Alanine Aminotransferase 25 U/L (0-31); Albumin Level 4.2 g/dL (3.5-5.0); Alkaline Phosphatase 61 U/L (39-117); Anion Gap 11 (12-20); Aspartate Amino Transferase 21 U/L (5-31); Bilirubin Total 0.4 mg/dL (0.0-1.0); Blood Urea Nitrogen 16 mg/dL (9-16); Calcium 9.5 mg/dL (8.4-10.2); Carbon Dioxide 28 mmol/L (22-29); Chloride 106 mmol/L (96-108); Cholesterol 173 mg/dL (<200); Estimated Glomerular Filt Rate > 60; Glucose Random 88 mg/dL (60-115); HDL Cholesterol 59 mg/dL (>40); Iron 93 mcg/dL (30-160); LDL Cholesterol Calculated 90 mg/dL (<100); Percent Iron Saturation 26 % (15-50); Potassium 3.9 mmol/L (3.3-5.1); Sodium 141 mmol/L (135-145); Total Iron Binding Capacity 355 mcg/dL (228-428); Total Protein 7.5 g/dL (6.5-8.0); Triglycerides 120 mg/dL (<150); Unsaturated Iron Binding 262 ug/dL
[2024-01-01 14:50] LABS: Ferritin 14 ng/mL (10-250); Insulin 9 uU/mL (2-29); Vitamin D 25-OH Total 39.7 ng/mL (>30)
[2024-01-01 14:52] LABS: Vitamin B12 548 pg/mL (200-900)
[2024-01-05 00:43] LABS: Zinc 96 mcg/dL (60-130)
== END 2024-01-01 12:38 | disposition home or self-care (01) ==
LOC: HO.LAB 12:37
PROVIDERS: PCP Internal Medicine; Visit Provider Physician Assistant Surgical
DX: Z98.84 Bariatric surgery status (principal)
CPT/HCPCS: 36415; 80053; 80061; 82306; 82607; 82728; 82746; 83036; 83525; 83540; 84425; 84443; 84590; 84630; 85025; 86140

== ENCOUNTER 2024-01-05 11:34 | Outpatient (REF) | payer OTHER, SELFPAY ==
[2024-01-09 19:59] LABS: Vitamin A 45 mcg/dL (38-98)
[2024-01-10 16:02] LABS: Vitamin B1 11 nmol/L (8-30)
== END 2024-01-05 11:35 | disposition home or self-care (01) ==
LOC: HO.LAB 11:34
PROVIDERS: PCP Internal Medicine; Visit Provider Physician Assistant Surgical
DX: Z98.84 Bariatric surgery status (principal)
CPT/HCPCS: 36415; 84425; 84590

== ENCOUNTER 2024-02-07 09:30 | Outpatient (AMB) | payer OTHER, SELFPAY ==
--- NOTE | 2024-02-07 09:42 | HO.SPINEOV ---
Intake Intake Visit Reasons: low back pain Intake Note: Ms. Escalante is here today c/o low back pain. 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 Allergies aspirin [ASA] Allergy (Severe, Verified 02/07/24 09:43) ANAPHYLAXIS NSAIDS (Non-Steroidal Anti-Inflamma [NSAIDS (NON-STEROIDAL ANTI-INFLAMMA] Allergy (Severe, Verified 02/07/24 09:43) ANAPHYLAXIS shellfish derived [SHELLFISH DERIVED] Allergy (Severe, Verified 02/07/24 09:43) ANAPHYLAXIS fish oil Allergy (Unknown, Verified 02/07/24 09:43) sinus symptoms Aspirin Allergy (Unknown, Uncoded 12/21/23 12:53) vomiting Shellfish Allergy (Unknown, Uncoded 12/21/23 12:53) itching Assessment & Plan Assessment & Plan (1) Lumbago: Code(s): M54.50 - Low back pain, unspecified Qualifiers: Chronicity: acute Back pain laterality: left Sciatica presence: without sciatica Qualified Code(s): M54.50 - Low back pain, unspecified Plan On 02/07/2024, I saw Neha Escalante for acute low back pain. She is trying to lose weight and is doing regular treadmill exercises. She was been doing dose for 3 days in a row last week when she already started to feel some irritation on the left side of her back. She lifted a bucket of laundry and then suddenly she felt a pop and severe pain in the left-sided back area radiating to her groin. She denies pain radiating down her leg. She went to urgent care where she was prescribed muscle relaxants and prednisone. She denies any new weakness or numbness. The right side is unaffected. On exam, there is pain on palpation over the left side of her back. Straight leg raise produces pain in the left side of her back. No new neurological deficits. She walks with an antalgic gait with deviation towards the right side. I explained to the patient that she most likely has acute lumbago. The symptoms should resolve in days to weeks. She needs to stay active. I advised against prednisone as there is no scientific evidence that this works in low back pain or sciatica. She will return to my office if no improvement in symptoms occur. I spent 25 minutes in his consult for history examination and discussing plan of care. Ambrose Dao MD, PhD Spine Fellowship Trained Neurosurgeon Director, [facility] Coding Level of Care Code Est Pt Level 3 (13606) Diagnoses Acute left-sided low back pain without sciatica M54.50 Chronicity: acute Back pain laterality: left Sciatica presence: without sciatica
== END 2024-02-07 10:24 | disposition home or self-care (01) ==
PROVIDERS: PCP Internal Medicine; Visit Provider Neurological Surgery
DX: M54.50 Low back pain, unspecified (principal)
CPT/HCPCS: 99213

== ENCOUNTER → 2024-02-07 09:30 | Outpatient (BNVA) | payer OTHER, SELFPAY | PROVIDERS: PCP Internal Medicine; Visit Provider Neurological Surgery | DX: M54.50 Low back pain, unspecified (principal) | CPT/HCPCS: 99212 ==

== ENCOUNTER 2024-02-19 11:12 | Outpatient (AMB) | payer OTHER, SELFPAY ==
--- NOTE | 2024-02-19 11:06 | A.OFFVIS_ITS ---
VS Expanded 02/19/24 11:15 Height 5 ft 6 in Weight 200 lb BMI 32.3 Intake Visit Reasons: (TELEPHONE) PO LSG 06/11/20 Allergies aspirin [ASA] Allergy (Severe, Verified 02/07/24 09:43) ANAPHYLAXIS NSAIDS (Non-Steroidal Anti-Inflamma [NSAIDS (NON-STEROIDAL ANTI-INFLAMMA] Allergy (Severe, Verified 02/07/24 09:43) ANAPHYLAXIS shellfish derived [SHELLFISH DERIVED] Allergy (Severe, Verified 02/07/24 09:43) ANAPHYLAXIS fish oil Allergy (Unknown, Verified 02/07/24 09:43) sinus symptoms Aspirin Allergy (Unknown, Uncoded 12/21/23 12:53) vomiting Shellfish Allergy (Unknown, Uncoded 12/21/23 12:53) itching Medication List - Last Reconciled 02/19/24 by VIKTOR Cam cetirizine 10 mg PO DAILY cholecalciferol (vitamin D3) 25 mcg PO DAILY cholestyramine (with sugar) 4 gram PO TID montelukast 10 mg PO DAILY thiamine HCl (vitamin B1) 100 mg PO DAILY HPI Comments Details: This?is a?58?yo female who is s/p LSG 06/11/2020. Weight at last visit on 12/21/2023 was 196.6 pounds with a BMI of 31.7, weight today is 200 pounds, representing a 3.4 pound weight gain with a BMI today of 32.3.? No complaints of nausea, emesis, abdominal pain or constipation. Reflux did improve for a time, but then got worse. Pt was given omeprazole by PCP, then set up to see GI. Hard to predict when reflux is going to happen, pt reports no obvious triggers. EKG has been okay (pt described a burning pain in her breast to PCP). Per pt, she had a previous endoscopy prior to sleeve which showed narrowing of esophagus . Was also recently put on prednisone due to back pain, can't exercise currently due to pain. Present meal plan includes: 7-9am Celebrate shake, 1 scoops in 8oz skim or 1% milk 10am-12pm Celebrate, ZP, or Fulfill 1-3pm another shake 4-6pm another bar 7pm 5 forks protein, 5 forks salad/veg/rice/potatoes 9-10pm half bar Was given this plan by Dr Vasquez at last visit. Exercise routine includes: treadmill walking PFS Medical History (Updated 02/07/24 @ 10:10 by Ambrose Dao MD, PhD) Intestinal malabsorption Asthma Nephrolithiasis Surgical History (Reviewed 12/21/23 @ 12:53 by Corinna Fierro [facility]) Hx of spinal surgery S/P laparoscopic sleeve gastrectomy History of sleeve gastrectomy H/O sinus surgery S/P right knee arthroscopy H/O shoulder surgery Hx of appendectomy History of esophagogastroduodenoscopy (EGD) Hx of colonoscopy Hx of section Family History (Reviewed 12/21/23 @ 12:53 by Corinna Fierro, [facility]) Father Hypertension Heart disease Colon cancer Mother Spinal stenosis Brother No problems noted. Brother No problems noted. Brother No problems noted. Sister No problems noted. Sister No problems noted. Son No problems noted. Daughter No problems noted. Daughter No problems noted. Daughter No problems noted. Social History (Reviewed 12/21/23 @ 12:53 by Corinna Fierro [facility]) Alcohol intake: never Patient Tobacco Use Status: Never used Tobacco Telehealth Telehealth Telehealth Platform: Telephone Location of provider rendering services: other Location of patient: address on file Patient Identification confirmed using: Name, : Yes Telehealth method: voice only Patient verbally consented to treatment: Yes Patient verbally consented to billing insurance company: Yes Patient informed of any privacy concerns related to visit: Yes Minutes spent on Phone/Video with Pt.: 12 Assessment & Plan Assessment & Plan (1) GERD (gastroesophageal reflux disease): Code(s): K21.9 - Gastro-esophageal reflux disease without esophagitis Category: Medical (2) Obesity: Code(s): E66.9 - Obesity, unspecified Category: Medical (3) S/P laparoscopic sleeve gastrectomy: Code(s): Z98.84 - Bariatric surgery status Category: Surgical Plan Pt with ongoing reflux despite changes to meal plan. She has been unable to exercise and has had difficulty with weight loss. She is scheduled to see GI soon so will follow up their plan. Pt may need endoscopy. RTC 3 months. Patient is obese and is not considered stable at this time. I spent a total of 30 minutes reviewing/updating records, examining the patient and counseling the patient on weight management as detailed above.
[2024-02-19 11:15] VITALS: BMI 32.3
== END 2024-02-19 11:31 | disposition home or self-care (01) ==
LOC: HO.HBS 11:12
PROVIDERS: PCP Internal Medicine; Visit Provider Physician Assistant Surgical
DX: K21.9 Gastro-esophageal reflux disease without esophagitis (principal); E66.9 Obesity, unspecified; Z98.84 Bariatric surgery status
CPT/HCPCS: 99214

== ENCOUNTER → 2024-02-19 11:12 | Outpatient (BNVA) | payer OTHER, SELFPAY | PROVIDERS: PCP Internal Medicine; Visit Provider Physician Assistant Surgical ==

== ENCOUNTER 2024-03-27 13:42 | Outpatient (AMB) | payer OTHER, SELFPAY ==
--- NOTE | 2024-03-27 13:47 | HO.SPINEOV ---
Intake Visit Reasons: sciatica pain no improvement Intake Note: Ms. Escalante is here today c/o sciatica pain with no improvement. Ultrasound Tech Required: No Allergies aspirin [ASA] Allergy (Severe, Verified 02/07/24 09:43) ANAPHYLAXIS NSAIDS (Non-Steroidal Anti-Inflamma [NSAIDS (NON-STEROIDAL ANTI-INFLAMMA] Allergy (Severe, Verified 02/07/24 09:43) ANAPHYLAXIS shellfish derived [SHELLFISH DERIVED] Allergy (Severe, Verified 02/07/24 09:43) ANAPHYLAXIS fish oil Allergy (Unknown, Verified 02/07/24 09:43) sinus symptoms Aspirin Allergy (Unknown, Uncoded 12/21/23 12:53) vomiting Shellfish Allergy (Unknown, Uncoded 12/21/23 12:53) itching Assessment & Plan Assessment & Plan (1) Back pain of lumbar region with sciatica: Code(s): M54.40 - Lumbago with sciatica, unspecified side Category: Medical Plan Dear colleague, On 03/27/2024, I saw for follow-up Neha Escalante. She had another flare-up of acute lumbago. She used ice and heat. Pain radiates to her buttocks. She noticed a patchy discoloration of the left lumbar region. She visited acute care the prescribed prednisone and told her to follow up with me. I reviewed the skin and it looks like post effect of heating pad. I did advise to repeat the MRI of the lumbar spine as she continues to suffer from these flare-ups to see if there is a reason for the repetitive back pain attacks. Ambrose Dao MD, PhD Spine Fellowship Trained Neurosurgeon Director, [facility] Orders: Orders MR lumbar spine wo con Today M54.40 - Lumbago with sciatica, unspecified side Coding Level of Care Code Est Pt Level 2 (94472) Diagnoses Back pain of lumbar region with sciatica M54.40
== END 2024-03-27 14:20 | disposition home or self-care (01) ==
PROVIDERS: PCP Internal Medicine; Visit Provider Neurological Surgery
DX: M54.40 Lumbago with sciatica, unspecified side (principal)
CPT/HCPCS: 99212

== ENCOUNTER → 2024-03-27 13:42 | Outpatient (BNVA) | payer OTHER, SELFPAY | PROVIDERS: PCP Internal Medicine; Visit Provider Neurological Surgery | DX: M54.40 Lumbago with sciatica, unspecified side (principal) | CPT/HCPCS: 99212 ==

== ENCOUNTER 2024-05-14 08:40 | Outpatient (REF) | payer OTHER, SELFPAY ==
--- NOTE | ~2024-05-14 | MR_ITS ---
EXAMINATION: MR LUMBAR SPINE WITHOUT CONTRAST CLINICAL INFORMATION: Lumbago with sciatica COMPARISON: MRI lumbar spine on 04/18/2023 TECHNIQUE: MRI of the lumbar spine was obtained without contrast. FINDINGS/ MR/MR lumbar spine wo con IMPRESSION: Please note that evaluation was prematurely terminated per patient's request. Only localizer, sagittal T2 and T1 FLAIR sequences were obtained. Mild levocurvature of the lumbar spine. Preservation of the normal lumbar lordosis. Trace retrolisthesis at L4-5. The vertebral body heights are preserved. Multilevel disc desiccation without significant disc height loss. The conus medullaris terminates at L1. There are disc bulges at T12-L1 through L4-5 which are similar in appearance from prior. Evaluation for spinal canal stenosis or neural foraminal narrowing is limited without additional sequences. Electronically signed by: Shanelle Gonzales MD 06/13/2024 10:40 AM EDT
== END 2024-05-14 08:41 | disposition home or self-care (01) ==
LOC: HO.MRI 08:40
PROVIDERS: PCP Internal Medicine; Visit Provider Neurological Surgery
DX: M54.40 Lumbago with sciatica, unspecified side (principal)
CPT/HCPCS: 72148

== ENCOUNTER 2024-08-22 13:07 | Outpatient (AMB) | payer OTHER, SELFPAY ==
--- NOTE | 2024-08-22 13:19 | HO.SPINEOV ---
Intake Visit Reasons: follow up after injection Intake Note: Ms. Escalante is here to F/u after injection with Dr. Cooper. Manager Educational Required: No Allergies aspirin [ASA] Allergy (Severe, Verified 02/07/24 09:43) ANAPHYLAXIS NSAIDS (Non-Steroidal Anti-Inflamma [NSAIDS (NON-STEROIDAL ANTI-INFLAMMA] Allergy (Severe, Verified 02/07/24 09:43) ANAPHYLAXIS shellfish derived [SHELLFISH DERIVED] Allergy (Severe, Verified 02/07/24 09:43) ANAPHYLAXIS fish oil Allergy (Unknown, Verified 02/07/24 09:43) sinus symptoms Aspirin Allergy (Unknown, Uncoded 12/21/23 12:53) vomiting Shellfish Allergy (Unknown, Uncoded 12/21/23 12:53) itching Assessment & Plan Assessment & Plan (1) Back pain of lumbar region with sciatica: Code(s): M54.40 - Lumbago with sciatica, unspecified side Category: Medical Plan Mrs Escalante is here today to discuss her current treatment plan for her low back. Last time I saw her, we sent her to Dr. Cooper and she underwent bilateral TF he is at L5. In addition to the injection, she has been doing physical therapy where they were working on what sounds like lumbar traction. The symptoms have abated quite a bit and she is much more comfortable. She is looking forward to maybe getting back to more of a gym type routine where she can be more active. I encouraged her to continue with therapy and gave her a new prescription. I reviewed her MRI again done at the [facility], and it shows good decompression of the L5 nerve but there is still a disc bulge at that level which may be contacting the L5 nerve in certain positions and maybe that is what was giving her her issue. It does not look bad enough to need an operation. Hopefully these conservative measures just continue to improve her situation. She can see us back on an as-needed basis. Total amount of time spent in this visit was 20 minutes in discussion of symptoms, lumbar MRI imaging results and subsequent plan of care Peña Dao MD,PhD [facility] Orders: Orders PT Evaluation and Treatment Today M54.40 - Lumbago with sciatica, unspecified side Coding Level of Care Code Est Pt Level 3 (29164) Diagnoses Back pain of lumbar region with sciatica M54.40
== END 2024-08-22 14:43 | disposition home or self-care (01) ==
LOC: HO.HNS 13:08
PROVIDERS: PCP Internal Medicine; Visit Provider Physician Assistant
DX: M54.40 Lumbago with sciatica, unspecified side (principal)
CPT/HCPCS: 99213

== ENCOUNTER → 2024-08-22 13:07 | Outpatient (BNVA) | payer OTHER, SELFPAY | PROVIDERS: PCP Internal Medicine; Visit Provider Physician Assistant | DX: M54.40 Lumbago with sciatica, unspecified side (principal) | CPT/HCPCS: 99212 ==

== ENCOUNTER 2024-10-18 13:37 | Outpatient (AMB) | payer OTHER, SELFPAY ==
--- NOTE | 2024-10-18 13:42 | HO.SPINEOV ---
Intake Visit Reasons: follow up Intake Note: Ms. Escalante is here today for a F/u. Livestock Farmworker Required: No Allergies aspirin [ASA] Allergy (Severe, Verified 02/07/24 09:43) ANAPHYLAXIS NSAIDS (Non-Steroidal Anti-Inflamma [NSAIDS (NON-STEROIDAL ANTI-INFLAMMA] Allergy (Severe, Verified 02/07/24 09:43) ANAPHYLAXIS shellfish derived [SHELLFISH DERIVED] Allergy (Severe, Verified 02/07/24 09:43) ANAPHYLAXIS fish oil Allergy (Unknown, Verified 02/07/24 09:43) sinus symptoms Aspirin Allergy (Unknown, Uncoded 12/21/23 12:53) vomiting Shellfish Allergy (Unknown, Uncoded 12/21/23 12:53) itching Assessment & Plan Assessment & Plan (1) Lumbago: Code(s): M54.50 - Low back pain, unspecified Category: Medical Qualifiers: Chronicity: acute Back pain laterality: left Sciatica presence: without sciatica Qualified Code(s): M54.50 - Low back pain, unspecified Plan Mrs Escalante is here for a return visit. She underwent a left L4-5 microdiskectomy last year and had been doing great until she had a fall down some stairs and since that time has been having persistent left L5 radiculopathy. It starts at about the area of her incision and travels classically down the L5 dermatome to the top of her foot. Not only is there pain but there is tingling and numbness as well in the top of her foot. Her MRI has always been fairly underwhelming, just a slight amount of displacement posteriorly of the left L5 nerve. Unfortunately though, she has continued to have brutal daily pain despite rigors amounts of conservative treatment including 2 separate bouts of physical therapy both for few months at a time, rest, activity modifications. She underwent 2 L5 nerve blocks and those do decrease her pain from about a 9 to a 7 but she can only have 3 of them a year so she has limited how frequently she can have them. She is allergic to nonsteroidal anti-inflammatories, but has been taking Tylenol. On my exam today, she has full strength in her left lower extremity, SI joint testing is negative. Reflex testing is normal. I went back and looked at her films with her again, explained to her that while I do not see much, on the sagittal T2 imaging there appears to be some evidence of the nerve over riding a disc bulge that is not well seen on the axial imaging. I explained to her that it is not a large disc herniation by any means and I am not sure if it is actually pressing on the nerve, but because of the amount of pain she is in I will review it again with Dr. Dao and see if he would be willing to offer her an exploration and possible redo diskectomy. I will get back to her once I have a chance to talk with him. Total amount of time spent in this visit was 20 minutes in discussion of symptoms, lumbar imaging results and subsequent plan of care Peña Dao MD,PhD [facility] Coding Level of Care Code Est Pt Level 3 (96830) Diagnoses Acute left-sided low back pain without sciatica M54.50 Chronicity: acute Back pain laterality: left Sciatica presence: without sciatica
== END 2024-10-18 14:36 | disposition home or self-care (01) ==
PROVIDERS: PCP Internal Medicine; Visit Provider Physician Assistant
DX: M54.50 Low back pain, unspecified (principal)
CPT/HCPCS: 99213

== ENCOUNTER → 2024-10-18 13:37 | Outpatient (BNVA) | payer OTHER, SELFPAY | PROVIDERS: PCP Internal Medicine; Visit Provider Physician Assistant | DX: M54.50 Low back pain, unspecified (principal) | CPT/HCPCS: 99212 ==

== ENCOUNTER 2024-11-20 14:45 | Outpatient (AMB) | payer OTHER, SELFPAY ==
--- NOTE | 2024-11-20 14:55 | HO.SPINEOV ---
Intake Visit Reasons: evaluation right knee Intake Note: Ms. Escalante is here c/o right knee pain. Microwave Engineer Required: No Allergies aspirin [ASA] Allergy (Severe, Verified 11/20/24 15:04) ANAPHYLAXIS NSAIDS (Non-Steroidal Anti-Inflamma [NSAIDS (NON-STEROIDAL ANTI-INFLAMMA] Allergy (Severe, Verified 11/20/24 15:04) ANAPHYLAXIS shellfish derived [SHELLFISH DERIVED] Allergy (Severe, Verified 11/20/24 15:04) ANAPHYLAXIS fish oil Allergy (Unknown, Verified 11/20/24 15:04) sinus symptoms Aspirin Allergy (Unknown, Uncoded 12/21/23 12:53) vomiting Shellfish Allergy (Unknown, Uncoded 12/21/23 12:53) itching Assessment & Plan Assessment & Plan (1) Lumbar disc herniation: Code(s): M51.26 - Other intervertebral disc displacement, lumbar region Category: Medical Plan Dear colleague, On November 20, I saw for follow-up Neha Escalante. She scheduled to undergo left L4-5 redo laminotomy/diskectomy. The last few weeks she was experiencing symptoms down the right leg lateral thigh and knee. She also had finds that her right knee is swollen. In the meantime, the symptoms have improved. The symptoms remain mostly on the left side. A knee exam is normal. I reiterated that this surgery is for left-sided symptoms. Her right-sided symptoms may be coming from favoring the right side and if this is the case this should respond to surgery. I do not recommend an orthopedic consult. We will proceed with our original plan. I spent 15 minutes in his consult. Ambrose Dao MD, PhD Spine Fellowship Trained Neurosurgeon Director, [facility] Coding Level of Care Code Est Pt Level 2 (21889) Diagnoses Lumbar disc herniation M51.26
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
--- OUTSIDE RECORDS SUMMARY | 2024-11-20 16:57 | XMS_ITS | Encounter Summary ---
Author Organization [facility] Address [address] [place] [address] Care Team Providers Care Optical Sales Associate Name Role Phone Erasto Arenas MD Primary Care Provider [phone] Reason for Visit * Reason Onset Date Comments prior auth 10/08/2024 tirzepatide, sahcin ght loss, (Zepbound) 2.5 mg/0.5 mL injection Encounter Details Date Type Department Care Team ([facility] Contact Info) Description 10/08/[address] [phone] Deisy Calzada MD [address] [place] [address] prior auth (tirzepatide, weight loss, (Zepbound) 2.5 mg/0.5 mL injection ) Social History Tobacco Use Types Packs/Day Years [...] on file documented as of this encounter Progress Notes * Neha Ponce MA - 11/18/2024 8:45 AM EST The patient details and Request Maxwell provided do not match Will need to call [facility] when they open Pt has tried phentermine * Debby Lynch - 11/13/2024 3:01 PM EST Prior Authorization for Medication-do not complete and send this encounter unless you have the fax from the pharmacy. Is this a Cover My Meds request: Yes -- Maxwell Code [id number] Name of Medication Zepbound Dose of Medication 2.5 MG What is the RX # from the faxed refill? How does patient take this med? Inject 0.5 mL (2.5 mg total) under the skin every 7 (seven) days., What Pharmacy did the fax come from: [facility] fax #: [phone] * Juan Escobar MA - 10/08/2024 9:19 AM EST Faith garcia which is what the Maxwell code brings up * Mehreen Lawson - 10/08/2024 9:04 AM EST Prior Authorization for Medication-do not complete and send this encounter unless you have the fax from the pharmacy. Is this a Cover My Meds request: [email or web address] Name of Medication tirzepatide, weight loss, (Zepbound) 2.5 mg/0.5 mL injection Dose of Medication 2.5mg/0.5mL What is the RX # from the faxed refill? How does patient take this med? Inject 0.5 mL (2.5 mg total) under the skin every 7 (seven) days. What Pharmacy did the fax come from: [facility] fax #: [phone] documented in this encounter Plan of Treatment Upcoming Encounters Date Type Department Care Team (Late st Contact Info) Description 12/02/2024 9:20 AM EST Office Visit Gastroenterology - [place] [address] [phone] Mignon Bobo NP [address] [address] 01/03/2025 11:00 AM EDT Office Visit Endocrinology - [address] [phone] Deisy Calzada MD [address] [place] [address] 05/20/2025 4:00 PM EDT Appointment Radiology Department - [address] [phone] documented as of this encounter Visit Diagnoses Not on filedocumented in this encounter Care Teams Optical Sales Associate Relationship Specialty Start Date End Date Erasto Arenas MD [address] [place] [id number] PCP - General 12/07/22 documented as of this encounter
--- OUTSIDE RECORDS SUMMARY | 2024-11-20 16:57 | XMS_ITS | Encounter Summary ---
Author Organization [facility] Address [address] [place] [address] Care Team Providers Care Marine Extension Agent Name Role Phone Erasto Arenas MD Primary Care Provider [phone] Reason for Visit * Reason Onset Date Comments Medication Problem 11/18/2024 zepbound Encounter Details Date Type Department Care Team ([facility] Contact Info) Description 11/18/2024 Telephone [id number] [place] [phone] Deisy Calzada MD [address] [place] [address] Medication Problem (zepbound) Social History Tobacco Use Types Packs/Day Years [...] as of this encounter Progress Notes * VIKTOR Koch - 11/19/2024 3:43 PM EST I see prior authorization message from yesterday. Any updates regarding the prior authorization forthe medication? * Corinna Maza - 11/18/2024 4:11 PM EST Medication Problem: What is the name of the medication patient is having a problem with?: zepbound What is the problem?: Patient states Sherly ADEN told her the zepbound needs another prior authand she is unable to get her next dose. Patient is upset because she thought the last PA was suppose to be put in for three months and now it has only been four doses and she is being told she needs another one. She is requesting a call back please. Who is calling about the problem? : The patient Is this a NEW medication?: no How long has the patient been taking this medication? Who prescribed this medication for the patient? Dr Calzada Who is patients PCP?: Erasto Arenas MD [facility] / Plan: Accept [employer] MEDICAID / Product Type: *No Product type* / documented in this encounter Plan of Treatment Upcoming Encounters Date Type Department Care Team (Late st Contact Info) Description 12/02/2024 9:20 AM EST Office Visit Gastroenterology - [address] [phone] Mignon Bobo NP [address] [address] 01/03/2025 11:00 AM EDT Office Visit Endocrinology - [address] [phone] Deisy Calzada MD [address] [place] [phone] 05/20/2025 4:00 PM EDT Appointment Radiology Department - [address] [phone] documented as of this encounter Visit Diagnoses Not on filedocumented in this encounter Care Teams Marine Extension Agent Relationship Specialty Start Date End Date Erasto Arenas MD [address] [address] PCP - General 12/07/22 documented as of this encounter
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
--- OUTSIDE RECORDS SUMMARY | 2024-11-20 16:57 | XMS_ITS | Clinical Summary ---
Author Organization [facility] Address [address] [place] [address] Care Team Providers Care Physical Optics Teacher Name Role Phone Unavailable Primary Care Provider Unavailabl e Allergies Active Allergy Reactions Criticality Noted Date Comments Nsaids Anaphylaxis High 06/23/2019 Medications Medication Sig Dispensed Refills Start Date End Date Status DULoxetine (CYMBALTA) DR capsule 30 mg Take 30 mg by mouth daily. 0 Active Topiramate (TOPAMAX PO) Take by mouth. 0 Active SUMAtriptan (IMITREX) 100 MG tablet Take 100 mg by mouth every 2 (two) hours as needed for migraine. 0 Active Metoclopramide HCl (REGLAN PO) Take by mouth. 0 Active Social History Tobacco Use Types Packs/Day Years Used Date Smoking Tobacco: Never Smokeless Tobacco: Never Alcohol Use Standard Drinks/Week Comments No 0 (1 standard drink = 0.6 oz pur e alcohol) Sex and Gender Information Value Date Recorded Sex Assigned at Female 06/23/2019 9:29 PM EDT Gender Identity Not on file Sexual Orientation Not on file Job Start Date Occupation Industry Not on file Not on file Not on file Last Filed Vital Signs Vital Sign Reading Time Taken Comments Blood Pressure 139/67 06/23/2019 11:23 PM EDT Pulse 70 06/23/2019 11:23 PM EDT Temperature 36.6 ??C (97.9 ??F) 06/23/2019 11:23 PM E DT Respiratory Rate 18 06/23/2019 11:23 PM EDT Oxygen Saturation 98% 06/23/2019 11:23 PM EDT Inhaled Oxygen Concentration - - Weight - - Height - - Body Mass Index - - Plan of Treatment Not on file
== END 2024-11-20 15:31 | disposition home or self-care (01) ==
PROVIDERS: PCP Internal Medicine; Visit Provider Neurological Surgery
DX: M51.26 Other intervertebral disc displacement, lumbar region (principal)
CPT/HCPCS: 99212

== ENCOUNTER → 2024-11-20 14:45 | Outpatient (BNVA) | payer OTHER, SELFPAY | PROVIDERS: PCP Internal Medicine; Visit Provider Neurological Surgery | DX: M51.26 Other intervertebral disc displacement, lumbar region (principal) | CPT/HCPCS: 99212 ==

== ENCOUNTER 2024-12-19 09:23 | Day surgery (SDC) | payer OTHER, SELFPAY ==
[2024-12-04 11:50] VITALS: BMI 30.7
--- NOTE | 2024-12-18 10:11 | P.CONAN_ITS ---
Documented by User: Kaye Rojas NP 12/18/24 10:13 HPI - Anesthesia Eval Consult details Narrative: 59yo F for Left L4-5 REDO Decompression,possible Discectomy Anesthesia Pre-Procedure Meds Is the patient on any of the following meds?: GLP1/DPP4 PMFSH Active Problems Active Problems: All Active Problems Lumbar disc herniation (Acute) Lumbago (Acute) GERD (gastroesophageal reflux disease) (Acute) Back pain of lumbar region with sciatica (Acute) Hx laparoscopic cholecystectomy (Acute) Vitamin B12 deficiency (Acute) Overweight (Acute) Left upper quadrant pain (Acute) BMI 31.0-31.9,adult (Acute) Obesity (Acute) S/P laparoscopic sleeve gastrectomy (Acute) Intestinal malabsorption (Acute) Asthma (Acute) Nephrolithiasis (Acute) Past Medical History Medical History (Updated 12/04/24 @ 12:14 by Khushbu Villalobos RN) Sciatica Arthritis Back pain Hx of renal calculi GERD (gastroesophageal reflux disease) Asthma Thyroid nodule Intestinal malabsorption Asthma Nephrolithiasis Family History Family History Father Hypertension Heart disease Colon cancer Mother Spinal stenosis Brother No problems noted. Brother No problems noted. Brother No problems noted. Sister No problems noted. Sister No problems noted. Son No problems noted. Daughter No problems noted. Daughter No problems noted. Daughter No problems noted. Surgical History Surgical History Hx of spinal surgery S/P laparoscopic sleeve gastrectomy History of sleeve gastrectomy H/O sinus surgery S/P right knee arthroscopy H/O shoulder surgery Hx of appendectomy History of esophagogastroduodenoscopy (EGD) Hx of colonoscopy Hx of section Social History Social History (Updated 12/04/24 @ 11:56 by Khushbu Villalobos RN) Household Members: Family Housing: House Are you a primary live in caregiver to a significant other at home: No Do you presently have visiting nurse or other home services: No Alcohol intake: never Patient Tobacco Use Status: Never used Tobacco Use of substances other than those prescribed or required for medical reasons: No Have you been hit, kicked, punched, or otherwise hurt by someone within the past year? If so, by whom?: No Are you DNR?: No Advance Directives: No Advance Directives Information Provided: Yes Advance Directives on File: No Recently lost weight without trying: No Nutrition Risks: Gastrointestinal Malabsorption Poor oral hygiene: No Meds Allergies Allergy/AdvReac Type Severity Reaction Status Date / Time aspirin [ASA] Allergy Severe ANAPHYLAXIS Verified 12/19/24 10:22 fish oil Allergy Severe Anaphylaxis Verified 12/19/24 10:22 NSAIDS (Non-Steroidal Allergy Severe ANAPHYLAXIS Verified 12/19/24 10:22 Anti-Inflamma [NSAIDS (NON-STEROIDAL ANTI-INFLAMMA] shellfish derived Allergy Severe ANAPHYLAXIS Verified 12/19/24 10:22 [SHELLFISH DERIVED] Home Medications ?Medication ?Instructions ?Recorded ?Confirmed ?Last Taken ?Type Advair Diskus PRN Shortness Of Breath Or Wheezing 12/04/24 12/04/24 Unknown History duloxetine 60 mg capsule,delayed 60 mg PO DAILY 12/04/24 12/04/24 12/19/24 07:00 History release multivitamin 1 tab PO DAILY 12/04/24 12/04/24 Unknown History omeprazole 20 mg capsule,delayed 20 mg PO BID 12/04/24 12/04/24 12/19/24 07:00 History release tirzepatide (weight loss) 2.5 2.5 mg subcut QWEEK 12/04/24 12/04/24 Unknown History mg/0.5 mL subcutaneous pen injector (Zepbound) tizanidine 4 mg tablet 4 mg PO DAILY PRN muscle spasm 12/04/24 12/04/24 Unknown History Exam Height,Weight and Vital Signs: Height 5 ft 6 in Weight 86.183 kg Narrative Narrative: EKG 2023 NSR @ 61 Assessment and Plan Assessment Anesthesia Assessment: Chart Reviewed Documented by User: Mariajose Mcgovern MD 12/19/24 13:42 PMFSH Past Medical History Medical History (Updated 12/04/24 @ 12:14 by Khushbu Villalobos RN) Sciatica Arthritis Back pain Hx of renal calculi GERD (gastroesophageal reflux disease) Asthma Thyroid nodule Intestinal malabsorption Asthma Nephrolithiasis Family History Family History Father Hypertension Heart disease Colon cancer Mother Spinal stenosis Brother No problems noted. Brother No problems noted. Brother No problems noted. Sister No problems noted. Sister No problems noted. Son No problems noted. Daughter No problems noted. Daughter No problems noted. Daughter No problems noted. Family history of problems with anesthesia: No Surgical History Surgical History Hx of spinal surgery S/P laparoscopic sleeve gastrectomy History of sleeve gastrectomy H/O sinus surgery S/P right knee arthroscopy H/O shoulder surgery Hx of appendectomy History of esophagogastroduodenoscopy (EGD) Hx of colonoscopy Hx of section History of Problems with Anesthesia: No Social History Social History (Updated 12/04/24 @ 11:56 by Khushbu Villalobos RN) Household Members: Family Housing: House Are you a primary live in caregiver to a significant other at home: No Do you presently have visiting nurse or other home services: No Alcohol intake: never Patient Tobacco Use Status: Never used Tobacco Use of substances other than those prescribed or required for medical reasons: No Have you been hit, kicked, punched, or otherwise hurt by someone within the past year? If so, by whom?: No Are you DNR?: No Advance Directives: No Advance Directives Information Provided: Yes Advance Directives on File: No Recently lost weight without trying: No Nutrition Risks: Gastrointestinal Malabsorption Poor oral hygiene: No Meds Allergies Allergy/AdvReac Type Severity Reaction Status Date / Time aspirin [ASA] Allergy Severe ANAPHYLAXIS Verified 12/19/24 10:22 fish oil Allergy Severe Anaphylaxis Verified 12/19/24 10:22 NSAIDS (Non-Steroidal Allergy Severe ANAPHYLAXIS Verified 12/19/24 10:22 Anti-Inflamma [NSAIDS (NON-STEROIDAL ANTI-INFLAMMA] shellfish derived Allergy Severe ANAPHYLAXIS Verified 12/19/24 10:22 [SHELLFISH DERIVED] Home Medications ?Medication ?Instructions ?Recorded ?Confirmed ?Last Taken ?Type Advair Diskus PRN Shortness Of Breath Or Wheezing 12/04/24 12/04/24 Unknown History duloxetine 60 mg capsule,delayed 60 mg PO DAILY 12/04/24 12/04/24 12/19/24 07:00 History release multivitamin 1 tab PO DAILY 12/04/24 12/04/24 Unknown History omeprazole 20 mg capsule,delayed 20 mg PO BID 12/04/24 12/04/24 12/19/24 07:00 History release tirzepatide (weight loss) 2.5 2.5 mg subcut QWEEK 12/04/24 12/04/24 Unknown History mg/0.5 mL subcutaneous pen injector (NuvoMedpbound) tizanidine 4 mg tablet 4 mg PO DAILY PRN muscle spasm 12/04/24 12/04/24 Unknown History Exam Airway Mallampati Class: II TM Dist: >3cm Neck ROM: Full Assessment and Plan Assessment Anesthesia Assessment: Anesthesia Plan Discussed Final Anesthetic Review Family History of Problems with Anesthesia: No History of Problems with Anesthesia: No NPO: Yes ASA Class: II Final Preanesthetic Review: No Changes in Pt Med Stat, Meds/Allgs Chart Reviewed, Consent Obtained/Reviewed, Anes Risks/Benef Reviewed and DNR Form (If Appl.) Patient Risk: Intermediate Procedure Risk: Intermediate Anesthetic Plan Anesthetic Plan: GA Disposition: Standard PACU
[2024-12-19] VITALS (10 sets, daily range): BP systolic 134–160; BP diastolic 55–97; PULSE 75–95; RESP 15–16; TEMP 36.6; O2SAT 93–98; BMI 30.2
--- NOTE | ~2024-12-19 | FL_ITS ---
EXAMINATION: FL GUIDANCE ONLY HISTORY: L4-L5 redo decompression possible discectomy COMPARISON: None available. TECHNIQUE: Fluoroscopy time: Less than 1 minute. Cumulative Dose: 2.43 mGy. DAP: 0.504 mGym2 Images: 1. FINDINGS: A single fluoroscopic spot film of the lumbar spine in the lateral projection demonstrates a probe directed toward the L5-4-5 intervertebral disc space from a posterior approach. FL/FL guidance in OR IMPRESSION: Fluoroscopy during procedure. Please see procedure report for additional information. Electronically signed by: Saran Hernández MD 12/19/2024 02:24 PM LIN
[2024-12-19] MEDS: Lactated Ringers 1,000 ML 100 ML IVCONT (11:01)
[2024-12-19] MEDS: Gabapentin 300 MG CAPSULE PO (11:07)
[2024-12-19] MEDS: methocarbamoL 750 MG TABLET PO (11:07)
--- NOTE | 2024-12-19 12:02 | MHC.SHP ---
Pre-Procedural Eval Section A - 24 Hr Update-Section A only Date of Service: 12/19/24 Section B - Complete if H&P > 30 days Chief Complaint: intervertebral disc displacement,Radiculopathy Allergies: Allergies Allergy/AdvReac Type Severity Reaction Status Date / Time aspirin [ASA] Allergy Severe ANAPHYLAXIS Verified 12/19/24 10:22 fish oil Allergy Severe Anaphylaxis Verified 12/19/24 10:22 NSAIDS (Non-Steroidal Allergy Severe ANAPHYLAXIS Verified 12/19/24 10:22 Anti-Inflamma [NSAIDS (NON-STEROIDAL ANTI-INFLAMMA] shellfish derived Allergy Severe ANAPHYLAXIS Verified 12/19/24 10:22 [SHELLFISH DERIVED] Review of Systems Sugical H&P ROS: Negative: Constitution, Cardiovascular, Respiratory, Neurological, Psychiatric, Hem-Onc, Allergic/Immunologic, Gastrointestinal, Genitourinary, Musculoskeletal, Integumentary, Endocrine and Eyes/Ears/Nose/Throat Exam Surgical H&P Exam: Not Evaluated: HEENT, Not Evaluated: Heart, Not Evaluated: Lungs, Not Evaluated: Extremities, Not Evaluated: Abdomen, Not Evaluated: Skin and Not Evaluated: Neurological Exam Comment: Patient is awake, alert, in no acute distress. Proposed surgical incision site is clean and dry with no signs of recent trauma. Plan Diagnosis/Plan: Unchanged I have reviewed the history and physical and performed a pertinent physical examination on my patient. No changes have occurred unless specified. Left redo L4-5 laminotomy / discectomy Time Spent With Patient Time: Total time managing care of this patient today __14__ minutes.
--- NOTE | 2024-12-19 14:21 | W.PM.OPN ---
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 I have explained the nature, purpose and benefits of the operation. I have discussed the risks and benefit of the operation including possible complications or adverse events with patient/family. Alternative(s) were discussed with the patient with their relative benefits and risks as well as the consequences of not accepting the operation were included in obtaining consent. Surgeon: JAVON JORGE MD, PHD Procedure Assisted By: Zenon Hull [facility] Description of Procedure This patient previously underwent a left-sided hemilaminotomy in 2021.. In a repeat MRI shows possible ongoing lateral recess stenosis for the L5 nerve root. The patient was offered and not decompression. The procedure complications were explained. The patient was consented. The patient was brought to the operating room and endotracheally intubated. The patient was turned in prone position on the David frame. Prep and drape was done followed by timeout. The Physician assistant professor of biochemistry provided access. The previous lumbar incision was opened followed by release of the paravertebral muscle on the left side to expose the L4-5 lamina and facet joints. An intraoperative x-ray was obtained to confirm the correct level. The microscope was brought in. I took over the procedure. I found the border of the previous defect with a straight curette. Then a high-speed drill was used to further expand the previous laminotomy . The thecal sac and L5 nerve root were identified. A medial facetectomy was done to further decompress the exiting L5 nerve root. No significant disc herniation was present. A long nerve hook could be easily passed along the medial side of the pedicle as a sign of adequate decompression. The microscope was removed. Hemostasis was done. The physician assistant professor of biochemistry close the Incision in 2 layers. Steri-Strips were used to approximate incision. An OpSite with Tegaderm was used to cover the incision. All sponge needle counts were correct. Patient was extubated and transported in stable is to recovery room. Anesthesia: General Estimated Blood Loss (ml): 20 mL Complications: None Duration of Surgery: Under 60 Minutes Postoperative Plan: Discharge to home
--- NOTE | 2024-12-19 14:25 | PM.DS ---
DS: Providers Provider Date of Service: 12/19/24 Date of discharge: 12/19/24 Primary care physician: Erasto Arenas MD DS: Summary Time Attestation Discharge Coordination Time (in mins): 12 Quality: Safe Use of Opioids Does Pt have an Active Cancer Diagnosis on the Problem List?: No Quality: Stroke Does the patient have a stroke diagnosis?: No Physical Exam Vital Signs: Vital Signs: Last Vital Signs Temp 97.9 F 12/19/24 10:19 Pulse 75 12/19/24 10:19 Resp 16 12/19/24 10:19 BP 146/88 H 12/19/24 10:19 Pulse Ox 96 12/19/24 10:19 O2 Del Method Room Air 12/19/24 10:19 BMI result Body Mass Index 30.2 Discharge Plan Discharge Patient Disposition: Home, Self-Care Referrals: Erasto Arenas MD [Primary Care Provider] - 1 Week Discharge Medications: New oxycodone 5 mg tablet 5 mg PO Q8H PRN (Reason: pain (scale score 7-10)) Qty: 21 0RF Rx Instructions: Partial Fill upon patient request. Continued tizanidine 4 mg tablet 4 mg PO DAILY PRN (Reason: muscle spasm) omeprazole 20 mg capsule,delayed release(DR/EC) 20 mg PO BID duloxetine 60 mg capsule,delayed release(DR/EC) 60 mg PO DAILY Zepbound 2.5 mg/0.5 mL pen injector 2.5 mg subcut QWEEK multivitamin Tablet 1 tab PO DAILY Advair Diskus PRN (Reason: Shortness Of Breath Or Wheezing) Discharge Orders: Discharge Order (Routine); Ordered 12/19/24 Ordered By: Zenon Hull Diet: Advance to usual diet Activity on Discharge: As tolerated Activity Restrictions/Additional Instructions: After your spinal surgery we ask you to observe the following restrictions/guidelines: Activity: It is normal to feel some discomfort as you increase your activity, but that will improve with time. We ask you avoid heavy lifting or acitivities that cause pain. As a general rule, 8lbs is a safe limit for lifting right after surgery. Walk as much as you feel comfortable but not to exhaustion. You will feel extra tired the first few days after surgery. Stay well hydrated. It is OK to walk up and down stairs You may return to driving when you are off narcotics (such as vicodin, oxycodone, dilaudid, etc), and you are back to normal functional capacity. If you have any concerns please check with office before driving. Return to work is specific to each patient and each surgery, so please speak with your doctor/PA at first follow up. Please bring paperwork such as FMLA at that time if you need it filled out. Medications: We recommend you take 1,000mg Tylenol every 8 hours for the first few weeks after surgery, if you do not have any liver issues and can tolerate this medication. Do not exceed 4,000mg daily. We will give you a short supply of narcotics after surgery (usually one weeks worth). If you need more please call the office but do not use more than prescribed. You will need to give our office 48 hours notice if you need narcotics refilled and we do not fill narcotics on weekends or evenings. If you are on a narcotic, it is a good idea to take a stool softener such as colace or senna to avoid constipation If you take blood thinner such as aspirin, Plavix, Coumadin, Effient, Eliquis etc for conditions such as Afib, DVT, Pulmonary embolus, coronary disease, stents etc please speak with your surgeon about specific details as to when you can resume these medications. You can resume NSAIDs on post op day 1 (eg: Motrin, Naproxen, etc). Follow up: Please call the office, , after surgery to arrange a 3 week follow up for wound check. Wound Care: You may remove your dressing on the first day after surgery. ?You may ?leave open to air. Please do not remove the steri strips underneath. they will fall off on their own in one week. IT IS NORMAL FOR THE WOUND TO OOZE OR BE BLOODY FOR A FEW DAYS AFTER SURGERY. ?IF THIS HAPPENS JUST PLACE NEW DRESSING OVER IT TO AVOID STAINING CLOTHES. You may shower on post op day # 1 We ask that you do not let the water soak the wound. If it does get wet, just towel dry lightly. Please do not scrub your incision or place any type of chemical/ointment on the wound. No tub baths, pools or jacuzzis for one month. If you have any leaking or redness from your wound, or fevers, please call the office. Print Language: Senegalese
== END 2024-12-19 16:41 | disposition home or self-care (01) ==
PROVIDERS: PCP Internal Medicine; Visit Provider Neurological Surgery
PROC: (CPT 63042; principal; 2024-12-19 12:00)
DX: M48.061 Spinal stenosis, lumbar region without neurogenic claudication (principal); M51.26 Other intervertebral disc displacement, lumbar region; M54.16 Radiculopathy, lumbar region; K90.9 Intestinal malabsorption, unspecified; J45.909 Unspecified asthma, uncomplicated; Z79.51 Long term (current) use of inhaled steroids; Z79.85 Long-term (current) use of injectable non-insulin antidiabetic drugs; Z79.899 Other long term (current) drug therapy; Z88.6 Allergy status to analgesic agent; Z98.84 Bariatric surgery status; Z98.890 Other specified postprocedural states
CPT/HCPCS: 63042; J0131; J0690; J1100; J2003; J2250; J2405; J2704; J3010

== ENCOUNTER → 2024-12-19 09:23 | Outpatient (BNV) | payer OTHER, SELFPAY | PROVIDERS: PCP Internal Medicine; Visit Provider Neurological Surgery | DX: M54.16 Radiculopathy, lumbar region (principal); M51.26 Other intervertebral disc displacement, lumbar region | CPT/HCPCS: 63047; 99499 ==

== ENCOUNTER 2025-01-08 13:40 | Outpatient (AMB) | payer OTHER, SELFPAY ==
--- NOTE | 2025-01-08 13:53 | HO.SPINEOV ---
Intake Visit Reasons: 1st post op Intake Note: Ms. Escalante is here today for her 1st post op appointment. Club Car Attendant Required: No Allergies aspirin [ASA] Allergy (Severe, Verified 12/19/24 10:22) ANAPHYLAXIS fish oil Allergy (Severe, Verified 12/19/24 10:22) Anaphylaxis NSAIDS (Non-Steroidal Anti-Inflamma [NSAIDS (NON-STEROIDAL ANTI-INFLAMMA] Allergy (Severe, Verified 12/19/24 10:22) ANAPHYLAXIS shellfish derived [SHELLFISH DERIVED] Allergy (Severe, Verified 12/19/24 10:22) ANAPHYLAXIS Assessment & Plan Assessment & Plan (1) Status post lumbar spine surgery for decompression of spinal cord: Code(s): Z98.890 - Other specified postprocedural states Category: Surgical Plan Procedure: Redo L4-L5 Laminotomy Neha comes in today for her 1st postoperative visit after redo L4-L5 Laminotomy. To recap the surgery yeilded no findings and was about 30 minutes long in total. She reports that her left leg pain as improved quite significantly since the surgery. She still has mild twinges of pain in her low back, but is otherwise doing well. She is completing regular ADLs without significant issue. She asked several questions regarding the postoperative healing course, all of which I answered to the best of my ability. No new neurological deficits. The patient ambulates well and rises from a seated position without difficulty. The posterior incision site is closed and well healing. I would like Neha to follow up with us again in 6 weeks for her 2nd postoperative visit. Zenon Dao MD,PhD [facility] Coding Level of Care Code Global (82750) Diagnoses Status post lumbar spine surgery for decompression of spinal cord Z98.890
--- OUTSIDE RECORDS SUMMARY | 2025-01-08 16:07 | XMS_ITS | Encounter Summary ---
Author Organization [facility] Address [address] [place] [address] Care Team Providers Care Loop Machine Operator Name Role Phone Erasto Arenas MD Primary Care Provider [phone] Reason for Visit * Reason Onset Date Comments Medication Problem 11/18/2024 zepbound Encounter Details Date Type Department Care Team ([facility] Contact Info) Description 11/18/2024 Telephone [id number] [place] [phone] Deisy Calzada MD [address] [place] [phone] Medication Problem (zepbound) Social History Tobacco Use Types Packs/Day Years Used Date Smoking Tobacco: Never Smokeless Tobacco: Never Alcohol Use Standard Drinks/Week Comments No 0 (1 standard drink = 0.6 oz pur e alcohol) Comments Unknown Sex and Gender Information Value Date Recorded Sex Assigned at Female 09/27/2024 3:22 PM EST Legal Sex Female 3:28 AM EST Gender Identity Female 09/27/2024 3:22 PM EST Sexual Orientation Choose not to disclose 2023 3:22 PM EST documented as of this encounter Ordered Prescriptions Prescription Sig Dispense Quantity Refills Last Filled Start Date End Date tirzepatide, weight loss, (Zepbound) 5 mg/0.5 mL injectionIndicatio ns:Obesity (BMI 30-39.9) Inject 0.5 mL (5 mg total) under the skin every 7 (seven) days. 2 mL 1 11/21/2024 12/31/2024 documented in this encounter Progress Notes * Neha Ponce MA - 12/11/2024 2:19 PM EST Spoke with Ca from [facility] who stated that the pa is good until 04/03/25 * Sol Gerardo RN - 11/22/2024 10:54 AM EST Called and spoke with patient Advised of dose increase Advised to call with any side effects/concerns * Savanna Cooper - 11/22/2024 10:14 AM EST Patient is returning Sol's phone call. Please call [phone] * Sol Gerardo RN - 11/22/2024 8:36 AM EST Called patient, no answer, VM left * Deisy Calzada MD - 11/21/2024 5:45 PM EST Dose changed to 5 mg * Sol Gerardo RN - 11/21/2024 4:25 PM EST Called and spoke with patient Pt has completed 4 weeks of Zepbound at 2.5 mg Denies any side effects, current weight 191 lbs If patient does not increase the dosage every 4 weeks, a CHRISTI for the insurance company is needed asto why she is on the same dose for extended period of time. * Savanna Cooper - 11/21/2024 4:17 PM EST Patient is calling asking when this prior auth will get done. This has been going on since 10/08/24at is when the form was faxed. Her last injection was 11/08/24. Its been 2 weeks without her injection. She would like a call back please at: [phone] * VIKTOR Koch - 11/19/2024 3:43 PM EST I see prior authorization message from yesterday. Any updates regarding the prior authorization forthe medication? * Corinna Mzaa - 11/18/2024 4:11 PM EST Medication Problem: What is the name of the medication patient is having a problem with?: zepbound What is the problem?: Patient states [place] [facility] told her the zepbound needs another [...] is patients PCP?: Erasto Arenas MD Payor: [facility] [facility] / Plan: [employer] / Product Type: *No Product type* / documented in this encounter Plan of Treatment Upcoming Encounters Date Type Department Care Team ([facility] st Contact Info) Description 05/20/2025 4:00 PM EDT Appointment Radiology Department [address] [phone] documented as of this encounter Visit Diagnoses Diagnosis Obesity (BMI 30-39.9)- Primary documented in this encounter Discontinued Medications Medication Sig Discontinue Reason Start Date End Da te tirzepatide, weight loss, (Zepbound) 2.5 mg/0.5 mL injectionIndications:Charmaine lim (BMI 30-39.9) Inject 0.5 mL (2.5 mg total) under the skin every 7 (seven) days. Therapy completed 10/04/2024 11/22/2024 documented as of this encounter Care Teams Loop Machine Operator Relationship Specialty Start Date End Date Erasto Arenas MD [address] [place] [address] PCP - General 12/07/22 documented as of this encounter
--- OUTSIDE RECORDS SUMMARY | 2025-01-08 16:08 | XMS_ITS | Clinical Summary ---
Author Organization [facility] Address [address] [place] [address] Care Team Providers Care Dry Roller Name Role Phone Unavailable Primary Care Provider [...]
--- OUTSIDE RECORDS SUMMARY | 2025-01-08 16:08 | XMS_ITS | Encounter Summary ---
Author Organization [facility] Address [address] [place] [address] Care Team Providers Care Client Customer Manager Name Role Phone Erasto Arenas MD Primary Care Provider [phone] Reason for Visit * Reason Onset Date Comments Medication Problem 12/13/2024 Injection sit e Encounter Details Date Type Department Care Team ([facility] Contact Info) Description 12/13/2024 Nurse Triage [facility] [address] [place] [phone] Deisy Calzada MD [address] [place] [address] Medication Problem (Injection site) Social History Tobacco Use Types Packs/Day Years [...] PM EST documented as of this encounter Progress Notes * Sol Gerardo RN - 12/13/2024 4:11 PM EST Called and spoke with patient On Zepbound 0.5 mg x 3 weeks, has 1 dose left Pt is due for surgery on 12/19, has to stopped Zepbound x 1 week Pt's current weight 188, done 11 pounds Denies n/v, abd pain + injection site reaction with every inject which last 5 days + redness + itchiness + swelling Denies fever/chills Denies throat swelling or difficulty breathing * Cecilia Mcdonald MA - 12/13/2024 3:00 PM EST Please triage if appropriate or route to provider of triage not needed. Thank you documented in this encounter Plan of Treatment Upcoming Encounters Date Type Department Care Team (Late st Contact Info) Description 05/20/2025 4:00 PM EDT Appointment Radiology Department - [address] [phone] documented as of this encounter Visit Diagnoses Not on filedocumented in this encounter Care Teams Client Customer Manager Relationship Specialty Start Date End Date Erasto Arenas MD [address] [place] [phone] PCP - General 12/07/22 documented as of this encounter
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
--- OUTSIDE RECORDS SUMMARY | 2025-01-08 16:08 | XMS_ITS | Encounter Summary ---
Author Organization [facility] Address [address] [place] [address] Care Team Providers Care Lubricating Machine Tender Name Role Phone Erasto Arenas MD Primary Care Provider [phone] Reason for Visit * Reason Comments Thyroid Problem Encounter Details Date Type Department Care Team ([facility] st Contact Info) Description 01/03/2025 11:00 AM EDT Office Visit Endocrinology - [id number] [place] [address] Deisy Calzada MD [address] [place] [address] Obesity (BMI 30-39.9) (Primary Dx); Jojo's disease Social History Tobacco Use Types Packs/Day Years [...] PM EST documented as of this encounter Last Filed [...] Mass Index 30.02 01/03/2025 10:57 AM EDT documented in this encounter Progress Notes * Deisy Calzada MD - 01/03/2025 11:00 AM EDT Continue on current regimen. * Deisy Calzada MD - 01/03/2025 11:00 AM EDT CHIEF COMPLAINT: Thyroid Problem IDENTIFIER: Neha Escalante is a 59 y.o. old female. HPI: Pt is here for follow up. She was last seen in 06/2024 for her weight. Also concerns for thyroid. Her mother couple of years ago and she had thyroid issues (hypothyroidism). We did labs and it shows jojo's but TSH in range. She has obesity and has been working on diet, she was started on wegovy, there have been insurance issues so switched over to Zepbound and currently on 5 mg weekly, she has been able to loose weight from 208 lbs to 184 lbs (her scale) . Feels well, no complaints. ROS: Negative except as noted in HPI PAST MEDICAL HISTORY: Patient Active Problem List [...] 02/2003 PROCEDURE: HISTORICAL APPENDECTOMY SECTION 2004 PROCEDURE: [place] DELIVERY ONLY CHOLECYSTECTOMY 2020 PROCEDURE: HISTORICAL CHOLECYSTECTOMY COLONOSCOPY 05/29/2008 PROCEDURE: HISTORICAL COLONOSCOPY; COMMENT: normal; repeat in five years COLONOSCOPY 04/17/2015 PROCEDURE: [place] COLONOSCOPY STOMA W/RMVL MIKE POLYP/OTH LES SNARE; COMMENT: adenomas; repeat in 5 yrs COLONOSCOPY 09/14/2021 PROCEDURE: HISTORICAL COLONOSCOPY; COMMENT: Dr Pugh, internal hemorrhoids, no specimens collected, repeat in 5 years ESOPHAGOGASTRODUODENOSCOPY 06/09/2017 [facility] PROCEDURE: [place] EGD TRANSORAL BIOPSY SINGLE/MULTIPLE; COMMENT: incomplete esophageal strictures, withmild inflammation on bxy; mild gastritis without H. pylori KNEE ARTHROSCOPY 2013 PROCEDURE: [place] ARTHROSCOPY KNEE DIAGNOSTIC W/WO SYNOVIAL BX SPX; COMMENT: Corsetti; Right ACL repair KNEE SURGERY 2016 PROCEDURE: HISTORICAL KNEE SURGERY OTHER SURGICAL HISTORY Right 12/30/2010 PROCEDURE: [place] PYELOTOMY WITH REMOVAL CALCULUS; COMMENT: Lithotripsy- extracorporeal shock wave, Dr. Hogan OTHER SURGICAL HISTORY PROCEDURE: HISTORY OTHER; COMMENT: Sinus surgery OTHER SURGICAL HISTORY 06/11/2020 PROCEDURE: [place] GASTRIC RSTCV W/O BYP VERTICAL-BANDED GASTROPLY; COMMENT: gastric sleeve. [facility] OTHER SURGICAL HISTORY 05/20/2022 PROCEDURE: [place] FERNANDEZ FACETECTOMY & FORAMOTOMY 1 VRT SGM [...] There are no discontinued medications. ACTIVE MEDICATIONS: Outpatient Medications Marked as Taking for the 01/03/25 encounter (Office Visit) with Deisy Calzada MD Medication Sig Dispense Refill cetirizine (ZyrTEC) 10 mg tablet TAKE 1 TABLET BY MOUTH EVERY DAY AT BEDTIME FOR 180 DAYS cyclobenzaprine (FLEXERIL) 10 mg tablet Take 1 tablet (10 mg total) by mouth 3 (three) times a day if needed for muscle spasms. hyoscyamine (ANASPAZ) 0.125 mg disintegrating tablet DISSOLVE 1 TABLET BY MOUTH 4 TIMES A DAY NEEDED FOR IBS CRAMP omeprazole (PriLOSEC) [address] capsule Take 1 capsule (20 mg total) by mouth. tirzepatide, weight loss, (Zepbound) 5 mg/0.5 mL injection Inject 0.5 mL (5 mg total) under the skin every 7 (seven) days. 2 mL 1 tiZANidine (ZANAFLEX) 4 mg tablet Take 1 tablet (4 mg total) by mouth as needed. Current Facility-Administered Medications for the 01/03/25 encounter (Office Visit) with Deisy Calzada MD Medication Dose Route Frequency Provider Last Rate Last Admin silver sulfADIAZINE (SILVADENE, SSD) 1 % cream Topical Daily Jose Horton MD ALLERGIES: Allergies Allergen Reactions Nsaids (Non-Steroidal Anti-Inflammatory Drug) Anaphylaxis and Wheezing Gi upset Aspirin Numbness and Wheezing House Dust Mite Shellfish Containing Products Wheezing Shrimp Wheezing PHYSICAL EXAM: Visit Vitals BP 135/89 Pulse 95 Temp 36.2 ??C (97.2 ??F) (Temporal) Ht 1.676 m (66 ) Wt 84.4 kg (186 lb) SpO2 95% BMI 30.02 kg/m?? Smoking Status Never BSA 1.94 m?? APPEARANCE: Alert and in no acute distress EYES: EOMI No resp distress NEURO: Awake, alert. LABS: No results found for: TSH No results found for: FT4 IMAGING: @SUZIE@ IMPRESSION: 1. Obesity (BMI 30-39.9) 2. Jojo's disease PLAN: Has been working on diet, has been on zepbound, making progress and is losing weight. Tolerating well. Continue on current regimen, when begins to plateau then shall go up on the dose. She is agreeable with plan. Gradually planning to go up on physical activity, has had spinal surgery. Planning to monitor TFT. All questions answered. Medication and lab orders: No orders of the defined types were placed in this encounter. Other orders: None Deisy Calzada MD on 01/03/2025 at 11:34 AM EDT documented in this encounter Plan of Treatment Upcoming Encounters Date Type Department Care Team (Late st Contact Info) Description 05/20/2025 4:00 PM EDT Appointment Radiology Department [address] [phone] Scheduled Orders Name Type Priority Associated Diagnoses Orde r Schedule Thyroid stimulating hormone Lab Routine Jojo's disease Expected: 01/03/2025, Expires: 01/03/2026 Thyroxine free Lab Routine Jojo's disease 1 Occurrences starting 01/03/2025 until 01/03/2026 documented as of this encounter Visit Diagnoses Diagnosis Obesity (BMI 30-39.9)- Primary Jojo's disease Chronic lymphocytic thyroiditis documented in this encounter Care Teams Lubricating Machine Tender Relationship Specialty Start Date End Date Erasto Arenas MD [address] [place] [id number] PCP - General 12/07/22 documented as of this encounter
== END 2025-01-08 14:13 | disposition home or self-care (01) ==
LOC: HO.HNS 13:41
PROVIDERS: PCP Internal Medicine; Visit Provider Physician Assistant
DX: Z98.890 Other specified postprocedural states (principal)
CPT/HCPCS: 99024

== ENCOUNTER → 2025-01-08 13:40 | Outpatient (BNVA) | payer OTHER, SELFPAY | PROVIDERS: PCP Internal Medicine; Visit Provider Physician Assistant | DX: Z48.89 Encounter for other specified surgical aftercare (principal); Z98.890 Other specified postprocedural states | CPT/HCPCS: 99212 ==

== ENCOUNTER 2025-02-07 13:17 | Outpatient (AMB) | payer OTHER, SELFPAY ==
--- NOTE | 2025-02-07 13:33 | A.SPINEOV_ITS ---
Intake Visit Reasons: sever back pain sx 12/19/24 Intake Note: Ms. Escalante is here today c/o severe back pain. she had surgery on 12/19/2024 for Redo L4-L5 5 Laminotomy, Partial facetectomy and foraminotomy with use of microscope. Pizza Driver Required: No Allergies aspirin [ASA] Allergy (Severe, Verified 02/07/25 13:34) ANAPHYLAXIS fish oil Allergy (Severe, Verified 02/07/25 13:34) Anaphylaxis NSAIDS (Non-Steroidal Anti-Inflamma [NSAIDS (NON-STEROIDAL ANTI-INFLAMMA] Allergy (Severe, Verified 02/07/25 13:34) ANAPHYLAXIS shellfish derived [SHELLFISH DERIVED] Allergy (Severe, Verified 02/07/25 13:34) ANAPHYLAXIS Assessment & Plan Assessment & Plan (1) Lumbago: Code(s): M54.50 - Low back pain, unspecified Category: Medical Qualifiers: Back pain laterality: left Chronicity: acute Sciatica presence: without sciatica Qualified Code(s): M54.50 - Low back pain, unspecified Plan Mrs Escalante is about 2 months out from her redo left L4-5 hemilaminotomy. At the time of surgery we did not find it herniated disc as we suspected, we just removed some scar tissue. Thankfully she has been pain-free in terms of left leg pain but she has persistent periodic episodes where her back pain will flare up. More recently she was just doing some work on a wedding just for her daughter and the physical activity set off a episode of spasms on the right para musculature side, and radiating into her right hip. It put her into bed for about 3 or 4 days. Zenon HOANG called her in some baclofen which seems to be helping. She had been taking tizanidine without relief. She has no shooting pain down into the legs. We discussed the fact that overall we did not see much at the time of surgery and do not have an explanation for this persistent back pain. We did not feel that there was any significant disc degeneration that would justify further intervention. At this point I do not know what to offer her because we do not see a surgical solution for the back pain. She has seen Dr. Cooper in the past and she has interested in going back to see him to see if there is any further workup they can do to try to solve this issue for her. I will put in a referral. Peña Dao MD, PhD [facility] Orders: Referrals Physiatry Referral M54.50 - Low back pain, unspecified Coding Level of Care Code Global (56455) Diagnoses Acute left-sided low back pain without sciatica M54.50 Back pain laterality: left Chronicity: acute Sciatica presence: without sciatica
--- OUTSIDE RECORDS SUMMARY | 2025-02-07 13:45 | XMS_ITS | Clinical Summary ---
Author Organization [address] Address [address] [place] [phone] Phone Care Team Providers Care Humanities Department Chair Name Role Phone Erasto Arenas MD Primary Care Provider [phone] Allergies Active Allergy Reactions Criticality Noted Date Comments Aspirin Numbness,Wheezing 12/09/2005 House Dust Mite 01/31/2018 Nsaids (Non-Steroidal Anti-Inflammatory Drug) Anaphylaxis,Wheezing High 11/09/2006 Gi upset Shellfish Containing Products Wheezing 2017 Shrimp Wheezing 01/30/2018 Medications tiZANidine (ZANAFLEX) 4 mg tablet Take 1 tablet (4 mg total) by mouth as needed. 3 Active hyoscyamine (ANASPAZ) 0.125 mg disintegrating tablet DISSOLVE 1 TABLET BY MOUTH 4 TIMES A DAY NEEDED FOR IBS CRAMP 3 Active omeprazole (PriLOSEC) [address] capsule Take 1 capsule (20 mg total) by mouth. 4 02/18/20 25 Active cetirizine (ZyrTEC) 10 mg tablet TAKE 1 TABLET BY MOUTH EVERY DAY AT BEDTIME FOR 180 DAYS 3 Active cyclobenzaprine (FLEXERIL) 10 mg tablet Take 1 tablet (10 mg total) by mouth 3 (three) times a day if needed for muscle spasms. Active tirzepatide, weight loss, (Zepbound) 5 mg/0.5 mL injectionIndication s:Obesity (BMI 30-39.9) Inject 0.5 mL (5 mg total) under the skin every 7 (seven) days. 2 mL 1 5 Active Hospital, Clinic, or Other Facility Administered [...] to 6 weeks. Atherosclerosis of abdominal aorta (CMS/HCC V24) 09/13/2021 Overview (07/24/2024): Noted on CT abdomen/pelvis [...] 11:00 AM EDT Office Visit Endocrinology - [address] [phone] Deisy Calzada MD Obesity (BMI 30-39.9) (Primary Dx); Tasha's disease 12/13/2024 Nurse Triage Endocrinology [address] [phone] Deisy Calzada MD Medication Problem (Injection site) 11/18/2024 Telephone Endocrinology [address] [phone] Deisy Calzada MD Medication Problem (zepbound) from Last 3 Months Immunizations Name Administration [...] PROCEDURE: HISTORICAL APPENDECTOMY KNEE ARTHROSCOPY 2013 PROCEDURE: [place] ARTHROSCOPY KNEE DIAGNOSTIC W/WO SYNOVIAL BX SPX; COMMENT: Corsetti; Right ACL repair SECTION 2004 PROCEDURE: [place] DELIVERY ONLY OTHER SURGICAL HISTORY 12/30/2010 Right PROCEDURE: [place] PYELOTOMY WITH REMOVAL CALCULUS; COMMENT: Lithotripsy-extracorpor eal shock wave, Dr. Hogan COLONOSCOPY 05/29/2008 PROCEDURE: HISTORICAL COLONOSCOPY; COMMENT: normal; repeat in five years COLONOSCOPY 04/17/2015 PROCEDURE: [place] COLONOSCOPY STOMA W/RMVL MIKE POLYP/OTH LES SNARE; COMMENT: adenomas; repeat in 5 yrs ESOPHAGOGASTRODUODENOSCOPY 06/09/2017 [facility] PROCEDURE: [place] EGD TRANSORAL BIOPSY SINGLE/MULTIPLE; COMMENT: incomplete esophageal strictures, with mild inflammation on bxy; mild gastritis without H. pylori SHOULDER SURGERY PROCEDURE: HISTORICAL SHOULDER SURGERY; COMMENT: x 2, 2014 and 2016 KNEE SURGERY 2016 PROCEDURE: HISTORICAL KNEE SURGERY OTHER SURGICAL HISTORY PROCEDURE: HISTORY OTHER; COMMENT: Sinus surgery UPPER GASTROINTESTINAL ENDOSCOPY 2016 PROCEDURE: UPPER GI ENDOSCOPY/EXAM; COMMENT: benign esophageal strictures OTHER SURGICAL HISTORY 06/11/2020 PROCEDURE: [place] GASTRIC RSTCV W/O BYP VERTICAL-BANDED GASTROPLY; COMMENT: gastric sleeve. [facility] COLONOSCOPY 09/14/2021 PROCEDURE: HISTORICAL COLONOSCOPY; COMMENT: Dr Pugh, internal hemorrhoids, no specimens collected, repeat in 5 years OTHER SURGICAL HISTORY 05/20/2022 PROCEDURE: [place] FERNANDEZ FACETECTOMY & FORAMOTOMY 1 VRT SGM [...] 05/20/2025 4:00 PM EDT Appointment Radiology Department [address] [phone] Health Maintenance Due Date Last Done Comments [...] 2) 07/04/2023 05/09/2023 COVID-19 Vaccine (3 - 2023- season) 2024 03/18/2021, 02/24/2021 Breast Cancer Screening 2024 10/18/20, 07/21/2021, 05/07/2020, Additional history exists Influenza Vaccine (Season Ended) 2025 08/19/2020, 12/26/2016, 09/01/2015, Additional history exists Colorectal Cancer Screening: Colonoscopy [...] age to complete this topic Meningococcal B Vaccine Aged Out No l onger eligible based on patient's age to complete this topic RSV Immunization Patients Under 20 months Aged Out No longer eligible based on patient's age to complete this topic Procedures Procedure Name Priority Date/Time Associated Diagnosis Comments THYROID STIMULATING HORMONE Routine 01/22/2025 1:29 PM EDT Tasha's disease THYROXINE FREE Routine 01/22/2025 1:29 PM EDT Tasha's disease EXTERNAL XRAY REPORT 12/19/2024 EXTERNAL XRAY REPORT 12/19/2024 SCREENING MAMMOGRAPHY BI 2-VIEW BREAST INC CAD Routine 2023 7:53 AM EST Encounter for general adult medical examination without abnormal findings from Last 3 Months or Most Recently Relevant to Health Maintenance Results * Thyroid stimulating hormone (01/22/2025 1:29 PM EDT) TSH 1.38 0.40 - 4.00 mcIU/mL LAB CHEMISTRY METHOD 01/22/2025 10:28 PM EDT [facility] Blood Venous blood specimen / Unknown Venipuncture / Unknown 01/22/2025 1:29 PM EDT 01/22/2025 1:29 PM EDT Deisy Calzada MD LAB BLOOD ORDERABLES Final Resul t Performing Organization Address [facility]/ZIP Co de Phone Number [facility] [address] [place] [address], * Thyroxine free (01/22/2025 1:29 PM EDT) Free T4 1.06 0.70 - 1.80 ng/dL LAB CHEMISTRY METHOD 01/22/2025 10:28 PM EDT [facility] Blood Venous blood specimen / Unknown Venipuncture / Unknown 01/22/2025 1:29 PM EDT 01/22/2025 1:29 PM EDT Deisy Calzada MD LAB BLOOD ORDERABLES Final Resul t Performing Organization Address [facility]/ZIP Co de Phone Number [facility] [address] [place] [address], * External Xray Report (12/19/2024) Only the [...] Most Recently Relevant to Health Maintenance Insurance [facility] HE[employer] PLAN Care Teams Humanities Department Chair Relationship Specialty Start Date End Date Erasto Arenas MD [address] [facility] [address] [place] [address] PCP - General 12/07/22
--- OUTSIDE RECORDS SUMMARY | 2025-02-07 13:45 | XMS_ITS | Clinical Summary ---
Author Organization [facility] Address [address] [place] [address] Care Team Providers Care Furniture And Bedding Inspector Name Role Phone Unavailable Primary Care Provider [...]
--- OUTSIDE RECORDS SUMMARY | 2025-02-07 13:45 | XMS_ITS | Encounter Summary ---
Author Organization [facility] Address [address] [place] [address] Care Team Providers Care School Secretary Name Role Phone Erasto Arenas MD Primary Care Provider [phone] Reason for Visit * Reason Onset Date Comments Medication Problem 12/13/2024 Injection sit e Encounter Details Date Type Department Care Team ([facility] st Contact Info) Description 12/13/2024 Nurse Triage [address] [phone] Deisy Calzada MD [address] [place] [phone] Medication Problem (Injection site) Social History Tobacco [...] 4:00 PM EDT Appointment Radiology Department - [address] [phone] documented as of this encounter Visit Diagnoses Not on filedocumented in this encounter Care Teams School Secretary Relationship Specialty Start Date End Date Erasto Arenas MD [address] [place] [phone] PCP - General 12/07/22 documented as of this encounter
== END 2025-02-07 13:52 | disposition home or self-care (01) ==
LOC: HO.HNS 13:18
PROVIDERS: PCP Internal Medicine; Visit Provider Physician Assistant
DX: M54.50 Low back pain, unspecified (principal)
CPT/HCPCS: 99024

== ENCOUNTER → 2025-02-07 13:17 | Outpatient (BNVA) | payer OTHER, SELFPAY | PROVIDERS: PCP Internal Medicine; Visit Provider Physician Assistant | DX: M54.50 Low back pain, unspecified (principal) | CPT/HCPCS: 99212 ==